=== PATIENT | male | born 1955 | race Caucasian/White ===

== ENCOUNTER 2020-07-25 06:57 | Day surgery (SDC) | payer MEDICARE, SELFPAY ==
--- NOTE | 2020-07-22 08:48 | P.CONAN_ITS ---
Documented by User: Justine Harrison 07/22/20 08:49 HPI - Anesthesia Eval Consult details Narrative: 65yo M for Colonoscopy [facility] Past Medical History Medical History Anal cancer Cancer of colon with rectum Cellulitis Diabetes Diabetic eye exam HTN (hypertension) Hyperlipidemia Family History Family History Father No problems noted. Mother Lung cancer Surgical History Surgical History H/O colonoscopy Hx of colectomy Social History Social History Smoking Status: Never smoker Use of substances other than those prescribed or required for medical reasons: No Advance Directives: No Advance Directives Information Provided: No Advance Directives on File: No Meds Allergies Allergy/AdvReac Type Severity Reaction Status Date / Time No Known Allergies Allergy Verified 06/08/20 13:48 Home Medications Medication Instructions Recorded Confirmed Type aspirin [Aspir-81] 81 mg PO DAILY 07/19/20 07/19/20 History lisinopril 10 mg PO DAILY 07/19/20 07/19/20 History metformin 500 mg PO BID 07/19/20 07/19/20 History Exam Exam Date and Time: July 22, 2020 0848 Assessment and Plan Assessment Anesthesia Assessment: Chart Reviewed Documented by User: Josefina Albarado 07/25/20 07:33 [facility] Past Medical History Medical History Anal cancer Cancer of colon with rectum Cellulitis Diabetes Diabetic eye exam HTN (hypertension) Hyperlipidemia Family History Family History Father No problems noted. Mother Lung cancer Family history of problems with anesthesia: No Surgical History Surgical History H/O colonoscopy Hx of colectomy History of Problems with Anesthesia: No Social History Social History Smoking Status: Never smoker Use of substances other than those prescribed or required for medical reasons: No Advance Directives: No Advance Directives Information Provided: No Advance Directives on File: No Meds Allergies Allergy/AdvReac Type Severity Reaction Status Date / Time No Known Allergies Allergy Verified 06/08/20 13:48 Home Medications Medication Instructions Recorded Confirmed Type aspirin [Aspir-81] 81 mg PO DAILY 07/19/20 07/19/20 History lisinopril 10 mg PO DAILY 07/19/20 07/19/20 History metformin 500 mg PO BID 07/19/20 07/19/20 History Exam Height,Weight and Vital Signs: Vital Signs Temp Pulse Resp BP Pulse Ox 07/25/20 06:48 96.2 F L 57 16 171/84 H 97 Pertinent Lab Results Pertinent Lab Results: POC 95 Airway Mallampati Class: II TM Dist: >3cm Neck ROM: Full Loose/Missing/Broken Teeth: Yes (Top front right- chipped, front teeth ridged, rough) Heart: RRR Lungs: CTAB Assessment and Plan Assessment Anesthesia Assessment: Anesthesia Plan Discussed and Chart Reviewed Final Anesthetic Review NPO: Yes ASA Class: II Final Preanesthetic Review: No Changes in Pt Med Stat, Meds/Allgs Chart Reviewed, Consent Obtained/Reviewed and Anes Risks/Benef Reviewed Patient Risk: Low Procedure Risk: Low Anesthetic Plan Anesthetic Plan: MAC: Disposition: Standard PACU
[2020-07-25 06:48] VITALS: BP 171/84; PULSE 57; RESP 16; TEMP 35.7; O2SAT 97; BMI 27.5
[2020-07-25] MEDS: Lactated Ringers 1,000 ML 100 ML IVCONT (07:06)
--- NOTE | 2020-07-25 07:16 | P.OP_ITS ---
Operative Note Operative Note Date of Service: 07/25/20 Narrative: Pre-op diagnosis: colon cancer screening, hx of rectal ca s/p transanal excision Post-op diagnosis: other (colon polyps, diverticulosis) Procedure: COLONOSCOPY TILL CECUM WITH BIOPSY AND SNARE POLYPECTOMY Consent: Indications for the procedure and potential complications of bleeding, perforation, reaction to medications and missed diagnosis were discussed with the patient and informed consent was obtained. Instrument: Olympus PCF H 190 L variable stiffness pediatric colonoscope Monitoring: Vital signs and clinical assessment, intermittent blood pressure monitoring, continuous EKG monitoring, Pulse oximetry and Carbon Dioxide monitoring were done throughout the procedure. Colon withdrawl time was 25 minutes. Procedure: The patient was placed in the left lateral decubitis position and pre-procedure medications were administered. After a digital rectal examination of the ano-rectum, the video colonoscope was inserted into the rectum and advanced through the colon to the cecum. The colonoscope was slowly withdrawn in a retrograde panoramic fashion and the colon mucosa was carefully examined including a retroflexed view of the rectum. Findings and interventions are described below. Procedure Difficulty: Without difficulty Findings: Terminal Ileum: Distal 5 cms was examined and appeared normal Cecum: Prominent fold on distal lip of ICV - biopsied. Ascending Colon: Normal Transverse Colon: Normal Descending Colon: Moderate diverticulosis Sigmoid Colon: A 5-6 mm sessile polyp adjacent to a diverticulum - biopsied. Moderate diverticulosis Rectum: A 10 mm sessile polyp at 5 cms removed with a hot snare. Scar of transanal resection seen at 5 cms without recurrent polyp. Ano-rectum: Normal Colon preparation: Good after copious irrigation. Impression and Post Procedure Diagnosis: Colonoscopy Findings: Two polyps removed Scar of transanal resection seen at 5 cms without recurrent polyp. Prominent fold on distal lip of ICV - biopsied. Moderate diverticulosis seen in the left colon Plan: Await pathology results Patient has an appointment on 08/08/20 in the GI Clinic with ANOOP Og. Repeat Colonoscopy interval based on path results - in 3-5 years if polyps are adenomatous and 10 years if polyps are hyperplastic. Above findings were reviewed with the patient and colon polyps and diverticulo sis handouts were given in the discharge area Surgeon: Quique Flowers MD Estimated blood loss (mL): 0 Pathology: other (A. Fold ICV, B. SC polyp x 1, C. Rectal polyp x 1) Condition: stable Disposition: PACU
--- NOTE | 2020-07-25 07:16 | MHC.SHP ---
Pre-Procedural Eval Section A The patient is an INPATIENT: No The History & Physical has been completed within 30 days and I have reviewed it.: No Section B Chief Complaint: SCREENING Details of Present Illness: A 65-year-old male referred for screening colonoscopy history of rectal cancer with transanal excision-last colonoscopy 2014 showed diverticulosis no polyps. He has been doing very well he has no colon issues. He has a to normal bowel pattern no rectal bleeding or rectal pain. He has a good appetite. Continues to work part-time No nausea, vomiting, abdominal pain, rectal bleeding, fever or chills. Relevant Family History (Specify if Yes): No Relevant Social History: None Present Medications: see Short Stay Collaborative assessment Medical History: Significant History ( Colon cancer - 1998. TYPE 2 DIABETES. Hyperlipidemia. Hypertension. ) History of Previous Operations: Relevant previous surgery/procedure and date(s) (colectomy ([facility]) 1998 colonoscopy ([facility]) 09/12/2010 colonoscopy 2014 ) Allergies: Allergies Allergy/AdvReac Type Severity Reaction Status Date / Time No Known Allergies Allergy Verified 06/08/20 13:48 Review of Systems Sugical H&P ROS: Negative: Constitution, Cardiovascular, Respiratory and Gastrointestinal Exam Surgical H&P Exam: Normal: Heart, Normal: Lungs, Normal: Extremities and Normal: Abdomen Plan Diagnosis/Plan: Unchanged Patient has been examined and remains a candidate for the planned procedure
[2020-07-25 08:09] LABS: Glucose, Whole Blood 95 mg/dL (60-115)
[2020-07-25 08:22] VITALS: BP 106/57; PULSE 56; RESP 14; TEMP 36.1; O2SAT 100
[2020-07-25 08:35] VITALS: BP 159/80; PULSE 59; RESP 16; O2SAT 100
--- NOTE | 2020-07-25 12:34 | HO.POSTANES ---
Post Anesthesia Evaluation Post Anesthesia Evaluation Vital Signs: Vital Signs Temp Pulse Resp BP Pulse Ox 07/25/20 08:35 59 16 159/80 H 100 07/25/20 08:22 97.0 F 56 14 106/57 L 100 07/25/20 06:48 96.2 F L 57 16 171/84 H 97 Anesthesia: Monitored Mental Status: Awake Pain Control: Satisfactory Nausea/Vomiting: None Hydration: Adequate Anesthesia-Related Issues: No Anes. Related Issues
== END 2020-07-25 09:13 | disposition home or self-care (01) ==
PROVIDERS: PCP Internal Medicine; Visit Provider Internal Medicine Gastroenterology
PROC: 0DJD8ZZ Inspection of Lower Intestinal Tract, Via Natural or Artificial Opening Endoscopic (ICD-10-PCS; CPT 45378; principal; 2020-07-25 07:30)
DX: Z12.11 Encounter for screening for malignant neoplasm of colon (principal); D12.8 Benign neoplasm of rectum; K63.5 Polyp of colon; K57.30 Diverticulosis of large intestine without perforation or abscess without bleeding; Z85.048 Personal history of other malignant neoplasm of rectum, rectosigmoid junction, and anus; E11.9 Type 2 diabetes mellitus without complications; Z79.84 Long term (current) use of oral hypoglycemic drugs
CPT/HCPCS: 45385; 45380; 82947; 88305

== ENCOUNTER → 2020-08-08 11:51 | Outpatient (BNVA) | payer MEDICARE, SELFPAY | PROVIDERS: Visit Provider Physician Assistant | DX: Z13.89 Encounter for screening for other disorder (principal) | CPT/HCPCS: Q3014 ==

== ENCOUNTER → 2020-11-14 10:14 | Outpatient (BNVA) | payer MEDICARE, SELFPAY | PROVIDERS: PCP Internal Medicine; Visit Provider Nurse Practitioner Gerontology | DX: E11.29 Type 2 diabetes mellitus with other diabetic kidney complication (principal); I10 Essential (primary) hypertension; E78.5 Hyperlipidemia, unspecified; E66.3 Overweight | CPT/HCPCS: 82947; 99212 ==

== ENCOUNTER → 2020-12-15 13:15 | Outpatient (BNVA) | payer MEDICARE, SELFPAY | PROVIDERS: PCP Internal Medicine; Visit Provider Dietitian, Registered | DX: E11.29 Type 2 diabetes mellitus with other diabetic kidney complication (principal) | CPT/HCPCS: 97802 ==

== ENCOUNTER → 2021-01-19 13:20 | Outpatient (BNVA) | payer MEDICARE, SELFPAY | PROVIDERS: PCP Internal Medicine; Visit Provider Dietitian, Registered | DX: E11.29 Type 2 diabetes mellitus with other diabetic kidney complication (principal) | CPT/HCPCS: 97803 ==

== ENCOUNTER → 2021-05-15 10:40 | Outpatient (BNVA) | payer MEDICARE, SELFPAY | PROVIDERS: PCP Internal Medicine; Visit Provider Nurse Practitioner Gerontology | DX: E11.29 Type 2 diabetes mellitus with other diabetic kidney complication (principal); E78.5 Hyperlipidemia, unspecified; E66.3 Overweight; I10 Essential (primary) hypertension | CPT/HCPCS: 82947; 83036; 99212 ==

== ENCOUNTER 2021-05-16 07:09 | Outpatient (REF) | payer MEDICARE, SELFPAY ==
[2021-05-16 12:11] LABS: Creatinine Urine 77.46 mg/dL; Microalbum/Creatinine Ratio Ur 15.4 ug/mg cr
[2021-05-16 12:17] LABS: Alanine Aminotransferase 8 U/L (0-40); Albumin Level 4.4 g/dL (3.5-5.0); Alkaline Phosphatase 53 U/L (39-117); Anion Gap 13 (12-20); Aspartate Amino Transferase 19 U/L (5-37); Bilirubin Total 1.2 mg/dL (0.0-1.0); Blood Urea Nitrogen 17 mg/dL (9-16); Calcium 9.5 mg/dL (8.4-10.2); Carbon Dioxide 27 mmol/L (22-29); Chloride 106 mmol/L (96-108); Cholesterol 156 mg/dL; Estimated Glomerular Filt Rate > 60; Glucose Fasting 122 mg/dL (60-99); HDL Cholesterol 53 mg/dL; LDL Cholesterol Calculated 86 mg/dl; Potassium 4.7 mmol/L (3.3-5.1); Sodium 141 mmol/L (135-145); Total Protein 6.8 g/dL (6.5-8.0); Triglycerides 89 mg/dL
[2021-05-17 08:40] LABS: LDL Cholesterol Direct 93 mg/dL (<100)
== END 2021-05-16 07:10 | disposition home or self-care (01) ==
LOC: HO.HMGCLDS 07:09
PROVIDERS: PCP Internal Medicine; Visit Provider Nurse Practitioner Gerontology
DX: E11.29 Type 2 diabetes mellitus with other diabetic kidney complication (principal)
CPT/HCPCS: 36415; 80053; 80061; 82043; 83721

== ENCOUNTER 2021-10-20 08:10 | Outpatient (REF) | payer MEDICARE, SELFPAY ==
[2021-10-20 11:42] LABS: Hematocrit 44.5 % (42.0-52.0); Hemoglobin 14.7 g/dl (14.0-18.0); Mean Corpuscular Hemoglobin 29.9 pg (27.0-33.0); Mean Corpuscular Volume 90.4 fL (80.0-98.0); Mean Platelet Volume 10.3 fL (9.4-12.4); Platelet Count 172 X10*3/uL (160-400); Red Blood Count 4.92 X10*6/uL (4.60-5.80); Red Cell Distribution Width 12.8 % (11.0-16.0); White Blood Count 6.6 X10*3/uL (4.8-10.8)
[2021-10-20 11:57] LABS: Alanine Aminotransferase 8 U/L (0-40); Alkaline Phosphatase 56 U/L (39-117); Anion Gap 9 (12-20); Aspartate Amino Transferase 16 U/L (5-37); Bilirubin Total 0.9 mg/dL (0.0-1.0); Blood Urea Nitrogen 18 mg/dL (9-16); Calcium 9.3 mg/dL (8.4-10.2); Carbon Dioxide 28 mmol/L (22-29); Chloride 107 mmol/L (96-108); Cholesterol 143 mg/dL; Estimated Glomerular Filt Rate > 60; Glucose Fasting 128 mg/dL (60-99); HDL Cholesterol 50 mg/dL; LDL Cholesterol Calculated 81 mg/dl; Potassium 4.4 mmol/L (3.3-5.1); Sodium 140 mmol/L (135-145); Total Protein 6.4 g/dL (6.5-8.0); Triglycerides 60 mg/dL
[2021-10-20 12:02] LABS: Creatinine Urine 111.69 mg/dL; Microalbum/Creatinine Ratio Ur 27.7 ug/mg cr
[2021-10-20 12:07] LABS: Estimated Average Glucose 126 mg/dL
[2021-10-20 12:16] LABS: Prostate Specific Antigen Scr 0.46 ng/mL (<0.05-4.0)
== END 2021-10-20 08:11 | disposition home or self-care (01) ==
LOC: HO.HMGCLDS 08:10
PROVIDERS: Visit Provider Internal Medicine
DX: Z00.00 Encounter for general adult medical examination without abnormal findings (principal); Z12.5 Encounter for screening for malignant neoplasm of prostate; E11.29 Type 2 diabetes mellitus with other diabetic kidney complication; E78.5 Hyperlipidemia, unspecified
CPT/HCPCS: 36415; 80053; 80061; 82043; 83036; 84153; 85027

== ENCOUNTER 2021-10-24 10:54 | Outpatient (REF) | payer MEDICARE, SELFPAY ==
--- NOTE | ~2021-10-24 | XR_ITS ---
EXAMINATION: XR SHOULDER, LEFT CLINICAL INFORMATION: Pain COMPARISON: None TECHNIQUE: Four views of the left shoulder. FINDINGS: There is no fracture or dislocation. The glenohumeral joint is well aligned. Mild narrowing of the joint space with small osteophytes. Mild hypertrophic degenerative change of the acromioclavicular joint. The visualized lung is clear. The visualized ribs are intact. XR/XR shoulder LT min 2V IMPRESSION: Mild degenerative changes of the left shoulder.
== END 2021-10-24 10:55 | disposition home or self-care (01) ==
LOC: HO.HMGCX 10:54
PROVIDERS: PCP Internal Medicine; Visit Provider Internal Medicine
DX: M25.512 Pain in left shoulder (principal); E11.9 Type 2 diabetes mellitus without complications; I10 Essential (primary) hypertension; E78.5 Hyperlipidemia, unspecified
CPT/HCPCS: 73030

== ENCOUNTER 2021-12-13 09:00 | Outpatient (RCR) | payer MEDICARE, SELFPAY ==
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
--- NOTE | 2021-12-29 15:11 | MHC.PT.DC ---
[facility] [place] [facility] [place] Office [place] Office [address] Zakiya Aburto [address] [phone] F: [phone] F: [phone] F: [phone] F: [phone] Physical Therapy Discharge Report Diagnosis: PAIN IN L SHOULDER Date of Surgery: NA Date of Evaluation: 11/22/21 Date of Discharge: 12/29/21 Treatments to Date: 6 Cancellations to Date: No Shows to Date: Discharge Status: Achieved Goals Improved Function Independent with HEP Patient Elected to Stop Discharge Summary: HAS MET MOST PT GOALS, GOOD HOME PROG WITH COMPLIANCE NOTED. PLAN WAS FOR 2 WK FU (12/27/21) VS CALL TO CX IF FEELING OK. Pt CALLED TO CX LAST APPT STATING THAT HE DIDNT THINK HE NEEDED ANY MORE PT Electronically signed by: KRYSTLE GOMEZ PT Please sign and return to therapist. Thank you for your referral.
== END 2021-12-29 15:14 | disposition home or self-care (01) ==
LOC: HO.PTWFD 09:00
PROVIDERS: PCP Internal Medicine; Visit Provider Internal Medicine
DX: M25.512 Pain in left shoulder (principal)
CPT/HCPCS: 97110; 97161; 97530; 97535

== ENCOUNTER 2022-10-29 19:19 | Inpatient (IN) | payer MEDICARE, SELFPAY ==
--- NOTE | ~2022-10-29 | XR_ITS ---
EXAMINATION: RIGHT HAND/WRIST CLINICAL INFORMATION: Status post dog bite. COMPARISON: None TECHNIQUE: 4 views. FINDINGS: There is no visible fracture or bony abnormality. The soft tissues are normal. No radiopaque foreign body seen. XR/XR hand wrist RT IMPRESSION: Unremarkable right hand exam. No soft tissue abnormality seen.
[2022-10-29 20:06] VITALS: BP 136/61; PULSE 67; RESP 16; TEMP 36.9; O2SAT 97; BMI 29.3
--- NOTE | 2022-10-29 20:06 | ED_ITS ---
HPI - Animal Bite General Chief Complaint: Extremity Injury, Upper <ANOOP Espinosa - Last Filed: 10/29/22 20:13> Stated Complaint: dog bite right hand red and swollen <ANOOP Espinosa - Last Filed: 10/29/22 20:13> Time Seen by Provider: 10/29/22 23:39 <ANOOP Espinosa - Last Filed: 10/29/22 20:13> Source: patient <Khadijah Freire MD - Last Filed: 10/30/22 00:39> Mode of arrival: ambulatory <Khadijah Freire MD - Last Filed: 10/30/22 00:39> Limitations: no limitations <Khadijah Freire MD - Last Filed: 10/30/22 00:39> History of Present Illness HPI narrative: Patient comes to the emergency room complaining of a dog bite to the dorsum of the right hand. Patient accidentally stepped on his dog and his dog bit his right hand on Saturday night. He went to the urgent care yesterday morning and was started on Augmentin. He took 3 doses. Although reports the redness is spreading past the line that they trace. Patient denies fever chills. The docks up-to-date with his immunizations. Patient receive a tetanus shot when he went to urgent care 2 days ago <Khadijah Freire MD - Last Filed: 10/30/22 00:39> Related Data Home Medications: Home Medications Medication Instructions Recorded Confirmed aspirin 81 mg tablet,delayed 81 mg PO DAILY 07/19/20 06/22/22 release Previous Rx's Medication Instructions Recorded clobetasol 0.05 % topical ointment 1 appl topical BEDTIME #60 grams 06/20/21 clobetasol 0.05 % topical ointment 1 appl topical BEDTIME #45 grams 04/26/22 metformin 500 mg tablet,extended 500 mg PO QPM #90 tabs 08/10/22 release 24 hr pravastatin 20 mg tablet 20 mg PO DAILY #90 tabs 08/10/22 lisinopril 10 mg tablet 10 mg PO DAILY #90 tabs 08/23/22 <ANOOP Espinosa - Last Filed: 10/29/22 20:13> Allergies/Adverse Reactions: Allergies Allergy/AdvReac Type Severity Reaction Status Date / Time No Known Allergies Allergy Verified 06/22/22 08:54 <ANOOP Espinosa - Last Filed: 10/29/22 20:13> Review of Systems Review of Systems: Constitutional : No Weight loss, No Fever, No Chills, No Night Sweats, No Fatigue, No Malaise ENT/Mouth : No Hearing loss, No Ear Pain, No Nasal Congestion, No Sinus Pain, No Hoarseness, No sore throat, No Rhinorrhea, No Swallowing Difficulty Eyes: No Eye Pain, No Swelling, No Redness, No Foreign Body, No Discharge, No Vision Changes Cardiovascular : No Chest Pain, No SOB, No Dyspnea on Exertion, No Orthopnea, No Edema, No Palpitations Respiratory : No Cough, No Sputum, No Wheezing, No Smoke Exposure, No Dyspnea Gastrointestinal : No Nausea, No Vomiting, No Diarrhea, No Constipation, No abdominal Pain, No Hematochezia, No Melena Genitourinary : no irregular bleeding, No Dysuria, No Urinary Frequency, No Hematuria, No Urinary Incontinence, No Urgency, No Flank Pain, No Urinary Flow Changes, No Hesitancy Musculoskeletal : No joint pain, No Myalgias, see skin below Skin : The dorsum of the right hand is erythematous, swollen, has 2 puncture wounds, there is mild streaking passing the marked line when antibiotics were started. Neuro : No Weakness, No Numbness, No Paresthesias, No Loss of Consciousness, No Dizziness, No Headache Psych : No Anxiety/Panic, No Depression, No SI/HI/AH/VH, No Social Issues, Heme/Lymph: No Bruising, No Bleeding,No Lymphadenopathy Endocrine : No Polyuria, No Polydipsia, No Temperature Intolerance <Khadijah Freire MD - Last Filed: 10/30/22 00:39> [facility] Past Medical History Medical History: Medical History Anal cancer Annual physical exam Cancer of colon with rectum Cellulitis Diabetes Diabetic eye exam DM type 2 (diabetes mellitus, type 2) Essential hypertension HTN (hypertension) Hyperlipidemia Hyperlipidemia LDL goal <100 Overweight (BMI 25.0-29.9) Proteinuria Shoulder pain, left <ANOOP Espinosa - Last Filed: 10/29/22 20:13> Surgical History: Surgical History H/O colonoscopy Hx of colectomy <ANOOP Espinosa - Last Filed: 10/29/22 20:13> Family History Family History: Family History Father No problems noted. Mother Lung cancer <ANOOP Espinosa - Last Filed: 10/29/22 20:13> Social History Social History: Social History Household Members: Spouse Housing: House Alcohol intake: former Patient Tobacco Use Status: Never used Tobacco e-Cigarette/Vaping Use: Never Used Advance Directives: No Current occupational status: retired Cognitive needs: No Hearing needs: No Vision needs: Yes <ANOOP Espinosa - Last Filed: 10/29/22 20:13> Physical Exam ED Vital Signs: Vital Signs - 24 hr 10/29/22 20:06 Temperature 98.4 F Pulse Rate 67 Respiratory Rate 16 Blood Pressure 136/61 Pulse Oximetry 97 Oxygen Delivery Method Room Air BMI result Body Mass Index 29.3 <ANOOP Espinosa - Last Filed: 10/29/22 20:13> Vital Signs - 24 hr 10/29/22 20:06 Temperature 98.4 F Pulse Rate 67 Respiratory Rate 16 Blood Pressure 136/61 Pulse Oximetry 97 Oxygen Delivery Method Room Air BMI result Body Mass Index 29.3 <Khadijah Freire MD - Last Filed: 10/30/22 00:39> Course Course Course Narrative: RME-20:10pm 67yoM presenting to the ER with complaints of spreading redness up the lateral aspect/ulnar aspect of the forearm that worsened today. He accidentally stepped on his dog and his dog bit his right hand on Saturday night. He went to the urgent care yesterday morning and was started on Augmentin. He took 3 doses. Although reports the redness is spreading past the line that they trace therefore he came here for further evaluation treatment and requesting IV antibiotics. Reports associated chills. No measured fevers. Denies any other symptoms complaints or concerns at this time. Reports that updated his tetanus at the urgent care. Plan: Will obtain labs, blood cultures, lactic acid, x-ray of right hand. Patient will be sent back to waiting room to be evaluated in the ED. <ANOOP Espinosa - Last Filed: 10/29/22 20:13> Medical Decision Making Medical Decision Making MDM Narrative: -patient's white blood cell count is within normal limits. Lactic acid normal. However, on physical exam, erythema streaking is going beyond the marked area where the erythema was. Patient has already had 3 doses of p.o. antibiotics, Augmentin, but seems to be failing p.o. treatment. Patient will need IV antibiotics. -abscess is not suspect -tenosynovitis not suspected. Patient has full function of hands and fingers, normal range of motion -I discussed the patient with Dr. Dugan, pt being admitted, patient agrees with plan <Khadijah Freire MD - Last Filed: 10/30/22 00:39> Differential Diagnosis Differential Diagnoses: The differential diagnosis associated with the presentation includes (Cellulitis, tenosynovitis) <Khadijah Freire MD - Last Filed: 10/30/22 00:39> Admission/Observation Consideration of admission/observation: Escalation of care including admission/observation considered <Khadijah Freire MD - Last Filed: 10/30/22 00:39> Consult Healthcare Provider Management of the patient was discussed with: Hospitalist <Khadijah Freire MD - Last Filed: 10/30/22 00:39> Lab Data MDM Lab Attestation statement: I reviewed the patient's lab results. <Khadijah Freire MD - Last Filed: 10/30/22 00:39> Result Diagrams: 10/29/22 22:50 10/29/22 22:50 <ANOOP Espinosa - Last Filed: 10/29/22 20:13> Labs: Lab Results 10/29/22 10/29/22 10/29/22 Range/Units 22:49 22:50 22:50 WBC 8.6 (4.8-10.8) X10*3/uL RBC 4.80 (4.60-5.80) X10*6/uL Hgb 14.3 (14.0-18.0) g/dl Hct 42.7 (42.0-52.0) % MCV 89.0 (80.0-98.0) fL MCH 29.8 (27.0-33.0) pg MCHC 33.5 (31.0-36.0) g/dl RDW 13.1 (11.0-16.0) % Plt Count 159 L (160-400) X10*3/uL MPV 10.2 (9.4-12.4) fL Immature Gran % (Auto) 0.4 (0.0-0.4) % Neut % (Auto) 67.1 (45-73) % Lymph % (Auto) 19.9 L (20-40) % [place] % (Auto) 9.2 (2-11) % Eos % (Auto) 2.8 (0-4) % Baso % (Auto) 0.6 (0-2) % Lymph # (Auto) 1.7 (1.2-4.9) X10*3/uL [place] # (Auto) 0.8 (0.1-1.2) X10*3/uL Eos # (Auto) 0.2 (0.0-0.4) X10*3/uL Baso # (Auto) 0.1 (0.0-0.2) X10*3/uL Abs Immat Gran (auto) 0.03 (0.00-0.03) X10*3/uL Absolute Neuts (auto) 5.8 (2.0-8.3) x10*3/uL Absolute Nucleated RBC 0.000 (0.0-0.012) X10*3/uL Nucleated RBC % (auto) 0.0 (0.0-0.2) /100WBC Sodium 142 (135-145) mmol/L Potassium 3.9 (3.3-5.1) mmol/L Chloride 106 (96-108) mmol/L Carbon Dioxide 29 (22-29) mmol/L Anion Gap 11 L (12-20) BUN 15 (9-16) mg/dL Creatinine 0.90 (0.5-1.4) mg/dL Estim Creat Clear Calc 84.5 Estimated GFR > 60 Random Glucose 170 H (60-115) mg/dL Lactic Acid 1.5 (0.5-2.0) mmol/L Calcium 9.2 (8.4-10.2) mg/dL Magnesium 2.0 (1.6-2.6) mg/dL Total Bilirubin 1.2 H (0.0-1.0) mg/dL AST 15 (5-37) U/L ALT 9 (0-40) U/L Alkaline Phosphatase 69 (39-117) U/L Total Protein 6.9 (6.5-8.0) g/dL Albumin 4.4 (3.5-5.0) g/dL <ANOOP Espinosa - Last Filed: 10/29/22 20:13> Lab Results 10/29/22 10/29/22 10/29/22 Range/Units 22:49 22:50 22:50 WBC 8.6 (4.8-10.8) X10*3/uL RBC 4.80 (4.60-5.80) X10*6/uL Hgb 14.3 (14.0-18.0) g/dl Hct 42.7 (42.0-52.0) % MCV 89.0 (80.0-98.0) fL MCH 29.8 (27.0-33.0) pg MCHC 33.5 (31.0-36.0) g/dl RDW 13.1 (11.0-16.0) % Plt Count 159 L (160-400) X10*3/uL MPV 10.2 (9.4-12.4) fL Immature Gran % (Auto) 0.4 (0.0-0.4) % Neut % (Auto) 67.1 (45-73) % Lymph % (Auto) 19.9 L (20-40) % [place] % (Auto) 9.2 (2-11) % Eos % (Auto) 2.8 (0-4) % Baso % (Auto) 0.6 (0-2) % Lymph # (Auto) 1.7 (1.2-4.9) X10*3/uL [place] # (Auto) 0.8 (0.1-1.2) X10*3/uL Eos # (Auto) 0.2 (0.0-0.4) X10*3/uL Baso # (Auto) 0.1 (0.0-0.2) X10*3/uL Abs Immat Gran (auto) 0.03 (0.00-0.03) X10*3/uL Absolute Neuts (auto) 5.8 (2.0-8.3) x10*3/uL Absolute Nucleated RBC 0.000 (0.0-0.012) X10*3/uL Nucleated RBC % (auto) 0.0 (0.0-0.2) /100WBC Sodium 142 (135-145) mmol/L Potassium 3.9 (3.3-5.1) mmol/L Chloride 106 (96-108) mmol/L Carbon Dioxide 29 (22-29) mmol/L Anion Gap 11 L (12-20) BUN 15 (9-16) mg/dL Creatinine 0.90 (0.5-1.4) mg/dL Estim Creat Clear Calc 84.5 Estimated GFR > 60 Random Glucose 170 H (60-115) mg/dL Lactic Acid 1.5 (0.5-2.0) mmol/L Calcium 9.2 (8.4-10.2) mg/dL Magnesium 2.0 (1.6-2.6) mg/dL Total Bilirubin 1.2 H (0.0-1.0) mg/dL AST 15 (5-37) U/L ALT 9 (0-40) U/L Alkaline Phosphatase 69 (39-117) U/L Total Protein 6.9 (6.5-8.0) g/dL Albumin 4.4 (3.5-5.0) g/dL <Khadijah Freire MD - Last Filed: 10/30/22 00:39> Independent Interpretation I performed an independent interpretation of an: Plain X-Ray (My interpretation of wrist/hand x-ray, no foreign bodies visualized) <Khadijah Freire MD - Last Filed: 10/30/22 00:39> Radiology Impression Discussion of test interpretation with radiology: I have reviewed the radiologist's reading. <Khadijah Freire MD - Last Filed: 10/30/22 00:39> Radiologist Impression: INDINGS: There is no visible fracture or bony abnormality. The soft tissues are normal. No radiopaque foreign body seen.? XR/XR hand wrist RT IMPRESSION: Unremarkable right hand exam. No soft tissue abnormality seen. ? <Khadijah Freire MD - Last Filed: 10/30/22 00:39> Critical Care Time Critical Care Time Critical Care Time: Yes <Khadijah Freire MD - Last Filed: 10/30/22 00:39> Total Critical Care Time: 30 <Khadijah Freire MD - Last Filed: 10/30/22 00:39> Attestation: I have personally provided critical care time. Time includes review of lab data, radiology results, discussion with consultants, and monitoring for potential decompensation. Intervention performed as documented. <Khadijah Freire MD - Last Filed: 10/30/22 00:39> Discharge Plan Discharge Clinical Impression: Cellulitis of hand, right <ANOOP Espinosa - Last Filed: 10/29/22 20:13> Patient Disposition: Admitted As Inpatient <ANOOP Espinosa - Last Filed: 10/29/22 20:13> Prescriptions: No Action pravastatin 20 mg tablet 20 mg PO DAILY Qty: 90 1RF metformin 500 mg tablet extended release 24 hr 500 mg PO QPM Qty: 90 3RF lisinopril 10 mg tablet 10 mg PO DAILY Qty: 90 3RF aspirin 81 mg Tablet,Delayed Release (Dr/Ec) 81 mg PO DAILY clobetasol 0.05 % ointment 1 appl topical BEDTIME Qty: 60 3RF clobetasol 0.05 % ointment 1 appl topical BEDTIME Qty: 45 1RF <ANOOP Espinosa - Last Filed: 10/29/22 20:13>
[2022-10-29 22:56] LABS: MANUAL DIFF FLAG NO
[2022-10-29 22:57] LABS: Basophils Absolute Auto 0.1 X10*3/uL (0.0-0.2); Basophils Percent Auto 0.6 % (0-2); Eosinophils Absolute Auto 0.2 X10*3/uL (0.0-0.4); Eosinophils Percent Auto 2.8 % (0-4); Hematocrit 42.7 % (42.0-52.0); Hemoglobin 14.3 g/dl (14.0-18.0); Imm Gran Abs Auto 0.03 X10*3/uL (0.00-0.03); Imm Gran Pct Auto 0.4 % (0.0-0.4); Lymphocytes Absolute Auto 1.7 X10*3/uL (1.2-4.9); Lymphocytes Percent Auto 19.9 % (20-40); Mean Corpuscular HGB Conc 33.5 g/dl (31.0-36.0); Mean Corpuscular Hemoglobin 29.8 pg (27.0-33.0); Mean Platelet Volume 10.2 fL (9.4-12.4); Monocytes Absolute Auto 0.8 X10*3/uL (0.1-1.2); Monocytes Percent Auto 9.2 % (2-11); Neutrophils Absolute Auto 5.8 x10*3/uL (2.0-8.3); Neutrophils Percent Auto 67.1 % (45-73); Platelet Count 159 X10*3/uL (160-400); Red Cell Distribution Width 13.1 % (11.0-16.0); White Blood Count 8.6 X10*3/uL (4.8-10.8)
[2022-10-29 23:11] LABS: Lactic Acid 1.5 mmol/L (0.5-2.0)
[2022-10-29 23:16] LABS: Alanine Aminotransferase 9 U/L (0-40); Albumin Level 4.4 g/dL (3.5-5.0); Alkaline Phosphatase 69 U/L (39-117); Anion Gap 11 (12-20); Aspartate Amino Transferase 15 U/L (5-37); Bilirubin Total 1.2 mg/dL (0.0-1.0); Blood Urea Nitrogen 15 mg/dL (9-16); Calcium 9.2 mg/dL (8.4-10.2); Carbon Dioxide 29 mmol/L (22-29); Chloride 106 mmol/L (96-108); Creatinine Clr Calc Pharmacy 84.5; Estimated Glomerular Filt Rate > 60; Glucose Random 170 mg/dL (60-115); Potassium 3.9 mmol/L (3.3-5.1); Sodium 142 mmol/L (135-145); Total Protein 6.9 g/dL (6.5-8.0)
--- NOTE | 2022-10-30 00:19 | PM.IMHP ---
History of Present Illness Date of Service: 10/30/22 Chief Complaint: Dog bite This is a 67-year-old male with pertinent history of essential hypertension, mixed hyperlipidemia, lyw-fsonuft-wawvsjjyj diabetes mellitus presents to the emergency department after a dog bite. Patient states that dog bit his right hand on Saturday after he accidentally stepped on his dog. Patient went to urgent care yesterday and was prescribed Augmentin. Patient took about 3 doses of the antibiotic and states that the redness and swelling of his right hand worsened. He is able to make a fist. Patient received tetanus injection 2 days ago. Admits chills but denies fever, nausea, vomiting, abdominal pain, chest pain, palpitations, shortness of breath, changes in urinary or bowel habits. In the emergency department, x-ray of the hand was unremarkable Review of Systems Constitutional: Constitutional: Reports chills Cardiovascular: Cardiovascular: Reports no additional cardiovascular complaints Respiratory: Respiratory: Reports no additional respiratory complaints Gastrointestinal: Gastrointestinal: Reports no additional gastrointestinal complaints Genitourinary: Genitourinary: Reports no additional male genitourinary complaints Musculoskeletal: Musculoskeletal: Reports joint swelling [facility] Medical History Anal cancer Annual physical exam Cancer of colon with rectum Cellulitis Diabetes Diabetic eye exam DM type 2 (diabetes mellitus, type 2) Essential hypertension HTN (hypertension) Hyperlipidemia Hyperlipidemia LDL goal <100 Overweight (BMI 25.0-29.9) Proteinuria Shoulder pain, left Family History Father No problems noted. Mother Lung cancer Surgical History H/O colonoscopy Hx of colectomy Social History Household Members: Spouse Housing: House Alcohol intake: former Patient Tobacco Use Status: Never used Tobacco e-Cigarette/Vaping Use: Never Used Advance Directives: No Current occupational status: retired Cognitive needs: No Hearing needs: No Vision needs: Yes Meds Allergies Allergy/AdvReac Type Severity Reaction Status Date / Time No Known Allergies Allergy Verified 06/22/22 08:54 Active Medications: Current Medications Ampicillin Sodium/Sulbactam (Sodium 3 gm/ Sodium Chloride) 100 mls @ 200 mls/hr IV ONCE ONE Stop: 10/30/22 00:44 Sodium Chloride (Ns) 1,000 mls @ 999 mls/hr IVCONT .Q1H1M ONE Stop: 10/30/22 01:15 Ampicillin Sodium/Sulbactam (Sodium 3 gm/ Sodium Chloride) 100 mls @ 200 mls/hr IV Q6H [facility] Pharmacy Consult (Consult Rx Perform Med Rec) 1 each MISCELLANE ONCE PRN PRN Reason: Consult order Pharmacy Consult (Consult Rx Perform Med Rec) 1 each MISCELLANE ONCE PRN PRN Reason: Consult order Home Medications Medication Instructions Recorded Confirmed Last Taken Type aspirin 81 mg tablet,delayed 81 mg PO DAILY 07/19/20 06/22/22 Unknown History release Physical Exam Vital Signs and Narrative: Vital Signs: Last Vital Signs Temp 98.4 F 10/29/22 20:06 Pulse 67 10/29/22 20:06 Resp 16 10/29/22 20:06 BP 136/61 10/29/22 20:06 Pulse Ox 97 10/29/22 20:06 O2 Del Method 10/29/22 20:06 BMI result Body Mass Index 29.3 Middle-aged male lying in bed in no distress Neck supple, no JVD Regular rate and rhythm, S1-S2 heard Regular breath sounds bilaterally, no wheezing or crackles appreciated Abdomen soft nontender, no guarding, no rigidity Patient is awake, alert and oriented to self, place, time and person ; no focal motor deficit musculoskeletal: Right hand with swelling, erythema and warmth Psych: Normal mood No pedal edema Results Labs 10/29/22 22:50 10/29/22 22:50 Labs: Laboratory Results - last 24 hr 10/29/22 10/29/22 10/29/22 22:49 22:50 22:50 MCV 89.0 MCH 29.8 MCHC 33.5 RDW 13.1 Plt Count 159 L MPV 10.2 Immature Gran % (Auto) 0.4 Neut % (Auto) 67.1 Lymph % (Auto) 19.9 L [place] % (Auto) 9.2 Eos % (Auto) 2.8 Baso % (Auto) 0.6 Lymph # (Auto) 1.7 [place] # (Auto) 0.8 Eos # (Auto) 0.2 Baso # (Auto) 0.1 Abs Immat Gran (auto) 0.03 Absolute Neuts (auto) 5.8 Absolute Nucleated RBC 0.000 Nucleated RBC % (auto) 0.0 Anion Gap 11 L Estim Creat Clear Calc 84.5 Estimated GFR > 60 Random Glucose 170 H Lactic Acid 1.5 Calcium 9.2 Magnesium 2.0 Total Bilirubin 1.2 H AST 15 ALT 9 Alkaline Phosphatase 69 Total Protein 6.9 Albumin 4.4 Imaging Radiologist's Impressions: Impressions Hand/Wrist X-Ray 10/29/22 20:26 IMPRESSION: Unremarkable right hand exam. No soft tissue abnormality seen. Assessment and Plan (1) Cellulitis of hand, right: Status: Acute Plan This is a 67-year-old male with pertinent history of essential hypertension, mixed hyperlipidemia, tyd-jwbwffw-lumqulbuo diabetes mellitus presents to the emergency department after a dog bite. #. Right hand cellulitis after dog bite: Failed outpatient p.o. antibiotics. Will admit and initiate IV empiric Unasyn. #. bwh-msyoaff-bimvnhtxv diabetes mellitus: Initiating Accu-Cheks with sliding scale insulin #. essential hypertension: Continue home lisinopril #. mixed hyperlipidemia: On statin med rec pending DVT prophylaxis: Lovenox 40 mg daily Full code Cardiac diet Admit as inpatient and will require two night minimum hospital stay for IV antibiotics Time Spent With Patient Time: Total time managing care of this patient today ____ minutes. Quality Stroke Does the patient have a stroke diagnosis?: No VTE Prior VTE?: No VTE Risk Level:: Medical - moderate - high VTE Device Contraindication: Treatment Not Indicated VTE Drug Contraindication: N/A - Med Ordered
[2022-10-30] MEDS: Ampicillin Sodium/Sulbactam Na 3 GM in 0.9 % Sodium Chloride 100 ML IV ×4 (00:50→20:09)
[2022-10-30] MEDS: 0.9 % Sodium Chloride 1,000 ML 999 ML IVCONT (00:50)
[2022-10-30] MEDS: Enoxaparin Sodium 40 MG/0.4 ML SYRINGE SUBCUT (00:51)
[2022-10-30 01:42] LABS: COVID-19 Test Negative (Negative); IDNOW Serial# 6674DD1D
--- NOTE | 2022-10-30 01:55 | PC.NURSE ---
patient resting comfortably on stretcher in no apparent distress. ringing call phan appropriately. patient is ambulatory with steady gait to and from bathroom,. will continue to monitor
[2022-10-30 02:21] VITALS: BP 153/80; PULSE 61; RESP 16; TEMP 36.9; O2SAT 99
--- NOTE | 2022-10-30 05:24 | PC.NURSE ---
Med req completed
[2022-10-30 06:04] LABS: MANUAL DIFF FLAG NO
[2022-10-30 06:12] LABS: Basophils Absolute Auto 0.1 X10*3/uL (0.0-0.2); Basophils Percent Auto 0.7 % (0-2); Eosinophils Absolute Auto 0.2 X10*3/uL (0.0-0.4); Eosinophils Percent Auto 3.3 % (0-4); Hematocrit 38.8 % (42.0-52.0); Imm Gran Abs Auto 0.04 X10*3/uL (0.00-0.03); Imm Gran Pct Auto 0.6 % (0.0-0.4); Lymphocytes Absolute Auto 1.5 X10*3/uL (1.2-4.9); Lymphocytes Percent Auto 21.4 % (20-40); Mean Corpuscular HGB Conc 33.5 g/dl (31.0-36.0); Mean Corpuscular Volume 89.6 fL (80.0-98.0); Mean Platelet Volume 10.6 fL (9.4-12.4); Monocytes Absolute Auto 0.7 X10*3/uL (0.1-1.2); Monocytes Percent Auto 10.6 % (2-11); Neutrophils Absolute Auto 4.5 x10*3/uL (2.0-8.3); Neutrophils Percent Auto 63.4 % (45-73); Platelet Count 145 X10*3/uL (160-400); Red Blood Count 4.33 X10*6/uL (4.60-5.80)
[2022-10-30 06:24] LABS: Anion Gap 11 (12-20); Blood Urea Nitrogen 13 mg/dL (9-16); Calcium 8.4 mg/dL (8.4-10.2); Carbon Dioxide 26 mmol/L (22-29); Chloride 110 mmol/L (96-108); Creatinine Clr Calc Pharmacy 84.5; Estimated Glomerular Filt Rate > 60; Glucose Random 153 mg/dL (60-115); Potassium 4.1 mmol/L (3.3-5.1); Sodium 143 mmol/L (135-145)
--- NOTE | 2022-10-30 06:30 | PC.NURSE ---
Pt aox3 resting at the bedside in no apparent distress. Breaths are equal, regular, and unlabored. Swelling and redness noted to the right hand. Pt report pain 5/10. Radial pulse present. Pt able to move all fingers. Medicated with IV ab as scheduled. Pt aware of plan of care. Will continue to monitor.
[2022-10-30 07:24] LABS: Glucose, Whole Blood 157 mg/dL (60-115)
[2022-10-30] MEDS: Insulin Lispro 100 UNIT/ML 3 ML VIAL SUBCUT ×3 (07:25→21:17)
--- NOTE | 2022-10-30 07:33 | PHA.MEDREC ---
Pharmacy Consult ? Medication Reconciliation Pharmacy has completed the medication reconciliation. Completed by RN and reviewed by me Patrick
[2022-10-30 08:32] VITALS: BP 153/89; PULSE 69; RESP 18; O2SAT 98
--- NOTE | 2022-10-30 11:15 | P.PNIM_ITS ---
Subjective Subjective Date of Service: 10/30/22 Interval History: f/u right hand dog bite cellulitis interval history: swelling and redness better, punture wounds noted Physical Exam Vital Signs: Vital Signs: Last Vital Signs Temp 98.4 F 10/30/22 02:21 Pulse 69 10/30/22 08:32 Resp 18 10/30/22 08:32 BP 153/89 H 10/30/22 08:32 Pulse Ox 98 10/30/22 08:32 O2 Del Method 10/30/22 08:32 BMI result Body Mass Index 29.3 Const: Other: General: AO X 3, no acute distress Resp: CTA bilateral CVS: S1,S2,RRR GI: +BS, NT, no distention Skin: right hand swelling with minimal erythema from area marked and punture wouds that are old Neuro: motor grossly intact Psych: appropriate affect Objective Data Active Medications Acetaminophen (Acetaminophen 325 Mg Tablet) 650 mg PO Q6H PRN PRN Reason: Pain, Mild (Pain Scale 1-3) Enoxaparin Sodium (Enoxaparin Sodium 40 Mg/0.4 Ml Syringe) 40 mg SUBCUT Q24H [facility] Last Admin: 10/30/22 00:51 Dose: 40 mg Documented By: ELLIS Glucose (Glucose Gel 15 Gm Gel..Gram.) 15 gm PO Q15M PRN; Protocol PRN Reason: per Hypoglycemia Standing Ord. Ampicillin Sodium/Sulbactam (Sodium 3 gm/ Sodium Chloride) 100 mls @ 200 mls/hr IV Q6H [facility] Last Infusion: 10/30/22 06:43 Dose: 0 mls/hr Documented By: KANDY Dextrose (D10) 250 mls @ 750 mls/hr IV Q15M PRN; Protocol PRN Reason: per Hypoglycemia Standing Ord. Insulin Human Lispro (Insulin Lispro 100 Unit/Ml 3 Ml Vial) 0 unit SUBCUT QIDACHS [facility]; Protocol Last Admin: 10/30/22 07:25 Dose: 2 unit Documented By: IAM Melatonin (Melatonin 3 Mg Tablet) 6 mg PO BEDTIME PRN PRN Reason: Insomnia Ondansetron HCl (Ondansetron Hcl 4 Mg/2 Ml Vial) 4 mg IVPUSH Q8H PRN PRN Reason: Nausea and Vomiting Pharmacy Consult (Consult Rx Perform Med Rec) 1 each MISCELLANE ONCE PRN PRN Reason: Consult order Pharmacy Consult (Consult Rx Perform Med Rec) 1 each MISCELLANE ONCE PRN PRN Reason: Consult order Sodium Chloride (0.9 % Sodium Chloride Flush 3 Ml Syringe) 3 ml IVFLUSH QSHIFT [facility] Last Admin: 10/30/22 07:13 Dose: Not Given Documented By: IAM Non-Admin Reason: Med Not Available Labs 10/30/22 05:40 10/30/22 05:40 Labs: Laboratory Results - last 24 hr 10/29/22 10/29/22 10/29/22 22:49 22:50 22:50 MCV 89.0 MCH 29.8 MCHC 33.5 RDW 13.1 Plt Count 159 L MPV 10.2 Immature Gran % (Auto) 0.4 Neut % (Auto) 67.1 Lymph % (Auto) 19.9 L [place] % (Auto) 9.2 Eos % (Auto) 2.8 Baso % (Auto) 0.6 Lymph # (Auto) 1.7 [place] # (Auto) 0.8 Eos # (Auto) 0.2 Baso # (Auto) 0.1 Abs Immat Gran (auto) 0.03 Absolute Neuts (auto) 5.8 Absolute Nucleated RBC 0.000 Nucleated RBC % (auto) 0.0 Anion Gap 11 L Estim Creat Clear Calc 84.5 Estimated GFR > 60 POC Glucose Random Glucose 170 H Lactic Acid 1.5 Calcium 9.2 Magnesium 2.0 Total Bilirubin 1.2 H AST 15 ALT 9 Alkaline Phosphatase 69 Total Protein 6.9 Albumin 4.4 COVID-19 (RIAT) COVID-19 Clin Com 10/30/22 10/30/22 10/30/22 01:06 05:40 05:40 MCV 89.6 MCH 30.0 MCHC 33.5 RDW 13.0 Plt Count 145 L MPV 10.6 Immature Gran % (Auto) 0.6 H Neut % (Auto) 63.4 Lymph % (Auto) 21.4 [place] % (Auto) 10.6 Eos % (Auto) 3.3 Baso % (Auto) 0.7 Lymph # (Auto) 1.5 [place] # (Auto) 0.7 Eos # (Auto) 0.2 Baso # (Auto) 0.1 Abs Immat Gran (auto) 0.04 H Absolute Neuts (auto) 4.5 Absolute Nucleated RBC 0.000 Nucleated RBC % (auto) 0.0 Anion Gap 11 L Estim Creat Clear Calc 84.5 Estimated GFR > 60 POC Glucose Random Glucose 153 H Lactic Acid Calcium 8.4 D Magnesium Total Bilirubin AST ALT Alkaline Phosphatase Total Protein Albumin COVID-19 (RITA) Negative COVID-19 Clin Com See Note 10/30/22 07:18 MCV MCH MCHC RDW Plt Count MPV Immature Gran % (Auto) Neut % (Auto) Lymph % (Auto) [place] % (Auto) Eos % (Auto) Baso % (Auto) Lymph # (Auto) [place] # (Auto) Eos # (Auto) Baso # (Auto) Abs Immat Gran (auto) Absolute Neuts (auto) Absolute Nucleated RBC Nucleated RBC % (auto) Anion Gap Estim Creat Clear Calc Estimated GFR POC Glucose 157 H Random Glucose Lactic Acid Calcium Magnesium Total Bilirubin AST ALT Alkaline Phosphatase Total Protein Albumin COVID-19 (RITA) COVID-19 Clin Com Assessment and Plan (1) Cellulitis of hand, right: Status: Acute (2) Dog bite: Status: Acute Plan right hand dog bite cellulitis came to ED after only 3 doses of Augmentin, looking better, plan: continue unasyn for 1 today and return to PO Augmentin by tomorrow continue BP and diabetes meds Time Spent With Patient Time: Total time managing care of this patient today ____ minutes. Quality Stroke Does the patient have a stroke diagnosis?: No VTE Prior VTE?: No VTE Risk Level:: Medical - moderate - high VTE Device Contraindication: Treatment Not Indicated VTE Drug Contraindication: N/A - Med Ordered
[2022-10-30 11:24] VITALS: BP 171/76; PULSE 52; RESP 12; TEMP 36.6; O2SAT 97
--- NOTE | 2022-10-30 11:49 | MHC.CM.PN ---
Met with patient in regards to discharge planning. Patient lives with his , ambulates independently and had no services prior to coming to the hospital. No services anticipated to be needed because patient is not homebound. PCP verified. Patient denies having a HCP. Information provided. Patient is declining to complete one at this time. Patient received 4 Pfizer vaccines. IMM explained and signed. Patient's family will transport him home when medically stable. Continue to monitor for d/c needs.
[2022-10-30 12:17] LABS: Glucose, Whole Blood 108 mg/dL (60-115)
[2022-10-30] MEDS: Pravastatin Sodium 20 MG TABLET PO (12:18)
[2022-10-30] MEDS: lisinopriL 10 MG TABLET PO (12:19)
[2022-10-30 14:31] VITALS: BP 162/82; PULSE 63; RESP 16; TEMP 36.4; O2SAT 99
[2022-10-30] MEDS: 0.9 % Sodium Chloride Flush 3 ML SYRINGE IVFLUSH (16:00)
[2022-10-30 18:15] LABS: Glucose, Whole Blood 207 mg/dL (60-115)
[2022-10-30 20:00] VITALS: BP 158/82; PULSE 60; RESP 18; TEMP 36.3; O2SAT 98
[2022-10-30] MEDS: metFORMIN HCl ER 500 MG TAB.ER.24H PO (20:11)
[2022-10-30 20:45] LABS: Glucose, Whole Blood 189 mg/dL (60-115)
[2022-10-31] MEDS: Enoxaparin Sodium 40 MG/0.4 ML SYRINGE SUBCUT (00:30)
[2022-10-31] MEDS: 0.9 % Sodium Chloride Flush 3 ML SYRINGE IVFLUSH ×2 (00:30→08:23)
[2022-10-31] MEDS: Ampicillin Sodium/Sulbactam Na 3 GM in 0.9 % Sodium Chloride 100 ML IV ×3 (00:52→12:08)
[2022-10-31 03:39] VITALS: BP 156/77; PULSE 62; RESP 18; TEMP 36.9; O2SAT 98
[2022-10-31 07:27] VITALS: BP 174/88; PULSE 58; RESP 16; TEMP 36.3; O2SAT 97
[2022-10-31 07:43] LABS: Glucose, Whole Blood 163 mg/dL (60-115)
[2022-10-31] MEDS: Insulin Lispro 100 UNIT/ML 3 ML VIAL SUBCUT ×2 (08:22→12:06)
[2022-10-31] MEDS: lisinopriL 10 MG TABLET PO (08:23)
[2022-10-31] MEDS: Pravastatin Sodium 20 MG TABLET PO (08:23)
--- NOTE | 2022-10-31 09:18 | P.DS_ITS ---
DS: Providers Provider Date of Service: 10/31/22 Date of admission: 10/30/22 00:18 Primary care physician: Justine Toribio MD Consults: 10/30/22 11:15 Consult to Infectious Diseases [place]ine [place] [facility] [place] Reason for consultation: Dog bite Has provider been notified: No DS: Diagnosis Discharge Diagnosis (1) Cellulitis of hand, right: Status: Acute (2) Dog bite: Status: Acute DS: Summary Hospital Course Hospital Course: Chief Complaint: Dog bite This is a 67-year-old male with pertinent history of essential hypertension, m ixed hyperlipidemia, blm-xixqaus-bwmmhdhck diabetes mellitus presents to the emergency department after a dog bite.? Patient states that dog bit his right hand on Saturday after he accidentally stepped on his dog.? Patient went to urgent care yesterday and was prescribed Augmentin.? Patient took about 3 doses of the antibiotic and states that the redness and swelling of his right hand worsened.? He is able to make a fist.? Patient received tetanus injection 2 days ago.? Admits chills but denies fever, nausea, vomiting, abdominal pain, chest pain, palpitations, shortness of breath, changes in urinary or bowel habits. Hospital course: Patient presented with worsening right hand cellulitis due to dog bite after 3 doses of Augmentin. He was treated with Unasyn in the hospital with signficant improvement and will transition back to oral Augmentin as at this point Augmentin will not be considered failure. Time Spent with Patient Time attestation: Total time managing care of this patient today ____ minutes. Discharge coordination time: Greater than 30 minutes Quality: Safe Use of Opioids Does Pt have an Active Cancer Diagnosis on the Problem List?: No Quality: Stroke Does the patient have a stroke diagnosis?: No Physical Exam Vital Signs: Vital Signs: Last Vital Signs Temp 97.4 F 10/31/22 07:27 Pulse 58 10/31/22 07:27 Resp 16 10/31/22 07:27 BP 174/88 H 10/31/22 07:27 Pulse Ox 97 10/31/22 07:27 O2 Del Method 10/31/22 07:27 BMI result Body Mass Index 29.3 DS: Data Data Completed and Pending Labs on day of discharge: Laboratory Results - last 24 hr 10/30/22 10/30/22 10/30/22 12:12 18:10 20:32 POC Glucose 108 207 H 189 H 10/31/22 07:33 POC Glucose 163 H Preliminary micro results at discharge 10/29/22 22:50 Blood Culture - Preliminary Blood - Venous No growth after 24 hours. 10/29/22 22:50 Blood Culture - Preliminary Blood - Venous No growth after 24 hours. Discharge Plan Discharge Anticipated Discharge Date/Time: 10/31/22 09:23 Patient Disposition: Home, Self-Care Discharge Diagnosis: Dog bite cellulitis Referrals: Justine Toribio MD [Primary Care Provider] - 1 Week Discharge Medications: Continued pravastatin 20 mg tablet 20 mg PO DAILY Qty: 90 1RF metformin 500 mg tablet extended release 24 hr 500 mg PO QPM Qty: 90 3RF lisinopril 10 mg tablet 10 mg PO DAILY Qty: 90 3RF Diet: Diabetic diet Activity on Discharge: As tolerated Stand Alone Forms: Patient Portal Discharge page Care Plan Goals: Full recovery from cellulitis Health Concerns: Dog bite cellulitis Plan of Treatment: Take Augmentin as recommended and follow up with your Doctor Assessment: as above
[2022-10-31 11:33] LABS: Glucose, Whole Blood 196 mg/dL (60-115)
--- NOTE | 2022-10-31 12:55 | MHC.CM.PN ---
per rounds pt may dc today plan woill be home no servcies
--- NOTE | 2022-10-31 13:07 | W.PM.IDCN ---
History of Present Illness Data of Consult Service Date: 10/31/22 Requesting physician: Jordy Richardson Primary Care Provider: Justine Toribio MD HPI Reason for consult: dog bite He presents with five days right hand pain and swelling right dorsum hand after dog bite. He has gone to ER and started on po Augmentin and had redness going up arm after. He came back to ER and was admitted. He didnt have trouble closing hand. He had bites from his 10 year old [employer] and dog attacked him and bit him on his posterior right thigh first after he stepped on its tail.Then he says he extended his hand in a peacemaking gesture and dog bit him on his hand. He declines rabies shot since he says dog is vaccinated. He feels back to normal today. Review of Systems Review of Systems: Yes all other systems are reviewed and are negative PMF Past Medical History Medical History Anal cancer Annual physical exam Cancer of colon with rectum Cellulitis Diabetes Diabetic eye exam DM type 2 (diabetes mellitus, type 2) Essential hypertension HTN (hypertension) Hyperlipidemia Hyperlipidemia LDL goal <100 Overweight (BMI 25.0-29.9) Proteinuria Shoulder pain, left Family History Family History Father No problems noted. Mother Lung cancer Surgical History Surgical History H/O colonoscopy Hx of colectomy Social History Social History Household Members: Spouse Housing: House Do you presently have visiting nurse or other home services: No Alcohol intake: former Patient Tobacco Use Status: Never used Tobacco e-Cigarette/Vaping Use: Never Used service: No Current occupational status: retired Cognitive needs: No Hearing needs: No Vision needs: Yes Meds Allergies Allergy/AdvReac Type Severity Reaction Status Date / Time No Known Allergies Allergy Verified 06/22/22 08:54 Active Medications: Current Medications Acetaminophen (Acetaminophen 325 Mg Tablet) 650 mg PO Q6H PRN PRN Reason: Pain, Mild (Pain Scale 1-3) Enoxaparin Sodium (Enoxaparin Sodium 40 Mg/0.4 Ml Syringe) 40 mg SUBCUT Q24H [facility] Last Admin: 10/31/22 00:30 Dose: 40 mg Glucose (Glucose Gel 15 Gm Gel..Gram.) 15 gm PO Q15M PRN; Protocol PRN Reason: per Hypoglycemia Standing Ord. Ampicillin Sodium/Sulbactam (Sodium 3 gm/ Sodium Chloride) 100 mls @ 200 mls/hr IV Q6H [facility] Last Infusion: 10/31/22 12:57 Dose: Infused Dextrose (D10) 250 mls @ 750 mls/hr IV Q15M PRN; Protocol PRN Reason: per Hypoglycemia Standing Ord. Insulin Human Lispro (Insulin Lispro 100 Unit/Ml 3 Ml Vial) 0 unit SUBCUT QIDACHS [facility]; Protocol Last Admin: 10/31/22 12:06 Dose: 2 unit Lisinopril (Lisinopril 10 Mg Tablet) 10 mg PO DAILY [facility]; Protocol Last Admin: 10/31/22 08:23 Dose: 10 mg Melatonin (Melatonin 3 Mg Tablet) 6 mg PO BEDTIME PRN PRN Reason: Insomnia Metformin HCl (Metformin Hcl Er 500 Mg Tab.Er.24h) 500 mg PO BEDTIME [facility] Last Admin: 10/30/22 20:11 Dose: 500 mg Ondansetron HCl (Ondansetron Hcl 4 Mg/2 Ml Vial) 4 mg IVPUSH Q8H PRN PRN Reason: Nausea and Vomiting Pharmacy Consult (Consult Rx Perform Med Rec) 1 each MISCELLANE ONCE PRN PRN Reason: Consult order Pharmacy Consult (Consult Rx Perform Med Rec) 1 each MISCELLANE ONCE PRN PRN Reason: Consult order Pravastatin Sodium (Pravastatin Sodium 20 Mg Tablet) 20 mg PO DAILY [facility] Last Admin: 10/31/22 08:23 Dose: 20 mg Sodium Chloride (0.9 % Sodium Chloride Flush 3 Ml Syringe) 3 ml IVFLUSH QSHIFT [facility] Last Admin: 10/31/22 08:23 Dose: 3 ml Physical Exam Vital Signs: Vital Signs: Last Vital Signs Temp 97.4 F 10/31/22 07:27 Pulse 58 10/31/22 07:27 Resp 16 10/31/22 07:27 BP 174/88 H 10/31/22 07:27 Pulse Ox 97 10/31/22 07:27 O2 Del Method 10/31/22 07:27 BMI result Body Mass Index 29.3 Const: General: cooperative HEENT: Head: Yes normal to inspection Face and sinus: Yes normal facial exam Mouth: Normal oral and palatal mucosa present Teeth and gingiva: dentition normal Eyes: General: appearance normal, both eyes and all related structures Pupils: Equal, round and reactive pupils present Resp: Effort & Inspection: normal respiratory effort Cardio: Rate: regular rate Rhythm: regular rhythm GI: Palpation (GI): Soft to palpation and nontender : General: Yes no CVA tenderness Back/Spine/Pelvis: Back: no CVA tenderness Skin: General skin exam: no rashes or lesions noted Neuro: General: moves all extremities Cranial nerves: Yes Equal, round and reactive pupils present Extrem: Other: right hand mild pinkness and swelling dorsal hand with no streaking only .5cm pinkness around puncture mer closes hand well Psych: Appearance: grossly normal Results Labs 10/30/22 05:40 10/30/22 05:40 Microbiology Microbiology Results: Microbiology 10/29/22 22:50 Blood - Venous Blood Culture - Preliminary No growth after 24 hours. 10/29/22 22:50 Blood - Venous Blood Culture - Preliminary No growth after 24 hours. Assessment and Plan (1) Dog bite: Status: Acute (2) Cellulitis of hand, right: Status: Acute Cellulitis is resolving. There is no more lymphangitic streaking,no fever or chills and no leukocytosis or bacteremia. Plan Finish po course Augmentin 7-10 days at home per patient request since he only took three doses before presenting. Make sure up to date on tetanus shot and administer if needed. Time Spent With Patient Time: Total time managing care of this patient today ____ minutes.
--- NOTE | 2022-10-31 14:38 | MHC.CLN ---
[facility] ADDED DIABETIC 2000 KCAL TO DIET ORDER. DX DM, ELEVATED BLOOD GLUCOSE, TAKES DM MEDS.
--- NOTE | 2022-10-31 14:43 | MHC.CM.PN ---
pt dcd home no skilled servceis ordered by
== END 2022-10-31 15:05 | disposition home or self-care (01) | DRG 603 ==
LOC: HO.ED 10-30 00:39 → HO.EDOVER 10-30 01:01 → HO.S3 10-30 16:25
PROVIDERS: Physician Assistant Medical; Admitting Provider Student in an Organized Health Care Education/Training Program; Emergency Provider Emergency Medicine; PCP Internal Medicine; Visit Provider Internal Medicine
DX: L03.113 Cellulitis of right upper limb (principal); E11.9 Type 2 diabetes mellitus without complications; S61.431A Puncture wound without foreign body of right hand, initial encounter; W54.0XXA Bitten by dog, initial encounter; E78.2 Mixed hyperlipidemia; I10 Essential (primary) hypertension; Z20.822 Contact with and (suspected) exposure to COVID-19; Z79.84 Long term (current) use of oral hypoglycemic drugs; Z79.899 Other long term (current) drug therapy
CPT/HCPCS: 36415; 73110; 73130; 80048; 80053; 82947; 83605; 83735; 85025; 87040; 87635; 99285; J0295; J1650

== ENCOUNTER 2023-08-08 11:22 | Outpatient (REF) | payer MEDICARE, SELFPAY ==
[2023-08-08 12:53] LABS: MANUAL DIFF FLAG NO
[2023-08-08 13:43] LABS: Basophils Absolute Auto 0.1 X10*3/uL (0.0-0.2); Basophils Percent Auto 0.8 % (0-2); Eosinophils Absolute Auto 0.2 X10*3/uL (0.0-0.4); Eosinophils Percent Auto 2.8 % (0-4); Hematocrit 44.7 % (42.0-52.0); Hemoglobin 14.9 g/dl (14.0-18.0); Imm Gran Abs Auto 0.04 X10*3/uL (0.00-0.03); Imm Gran Pct Auto 0.6 % (0.0-0.4); Lymphocytes Absolute Auto 1.9 X10*3/uL (1.2-4.9); Lymphocytes Percent Auto 25.7 % (20-40); Mean Corpuscular HGB Conc 33.3 g/dl (31.0-36.0); Mean Corpuscular Hemoglobin 29.5 pg (27.0-33.0); Mean Corpuscular Volume 88.5 fL (80.0-98.0); Mean Platelet Volume 10.5 fL (9.4-12.4); Monocytes Absolute Auto 0.6 X10*3/uL (0.1-1.2); Monocytes Percent Auto 8.9 % (2-11); Neutrophils Absolute Auto 4.4 x10*3/uL (2.0-8.3); Neutrophils Percent Auto 61.2 % (45-73); Platelet Count 170 X10*3/uL (160-400); Red Blood Count 5.05 X10*6/uL (4.60-5.80); Red Cell Distribution Width 12.9 % (11.0-16.0); White Blood Count 7.2 X10*3/uL (4.8-10.8)
[2023-08-08 14:16] LABS: C Reactive Protein 0.16 mg/dL (< or = 0.50); Iron 98 mcg/dL (45-160); Percent Iron Saturation 37 % (15-50); Total Iron Binding Capacity 268 mcg/dL (228-428); Unsaturated Iron Binding 170 ug/dL
[2023-08-08 14:33] LABS: Erythrocyte Sedimentation Rate 3 MM/HR (0-15)
[2023-08-08 14:34] LABS: Ferritin 466 ng/mL (20-250)
[2023-08-08 14:42] LABS: Vitamin B12 403 pg/mL (200-900)
== END 2023-08-08 11:23 | disposition home or self-care (01) ==
LOC: HO.LAB 11:22
PROVIDERS: PCP Internal Medicine; Visit Provider Physician Assistant
DX: K30 Functional dyspepsia (principal); D64.9 Anemia, unspecified; Z85.048 Personal history of other malignant neoplasm of rectum, rectosigmoid junction, and anus
CPT/HCPCS: 36415; 82378; 82607; 82728; 82746; 83540; 85025; 85652; 86140; 99202

== ENCOUNTER 2023-08-08 11:22 | Outpatient (AMB) | payer MEDICARE, SELFPAY ==
--- NOTE | 2023-08-08 11:29 | MHC.OFFVIS ---
Intake Vital Signs 08/08/23 11:32 Height 5 ft 8 in Weight 194 lb 0.108 oz BMI 29.5 BP 193/89 H Blood Pressure Location Lt brachial Position Sitting Pulse 54 Intake Visit Reasons: pe colonoscopy consult Intake Note: Donell presents in the office as a consult for a colonoscopy. CC: He states that he is not having any concerns other than he had a hx of colon cancer. He was irritated in his rectum and he tried prep H but he is not sure if he has a hemorrhoid or a polyp in there. He states he felt something in there and because he has a hx of a colon tumor he is a little concerned. 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 Mas- trans anal excision-went to [place] for chemo- radiation- C He has rectal irritation- feel there is something in there- no rectal bleeding or change in stools-no abdominal pain Last colonoscopy 2019- Dr. Flowers- Bowels are normal Appetite good BS running high He is very anxious due to hx rectal ca- certainly understandable- He gets a feeling of pain the upper stomach- seems to be gone-however comes and goes- nothing specific make it better or worse-details limited -denies acid-expresses worry- as well No N/V/D- fever or chills PFSH Medical History (Updated 08/20/23 @ 12:21 by Leonarda Lovett PA-C) Shoulder pain, left DM type 2 (diabetes mellitus, type 2) Annual physical exam Proteinuria Essential hypertension Hyperlipidemia LDL goal <100 Overweight (BMI 25.0-29.9) Anal cancer Diabetic eye exam HTN (hypertension) Hyperlipidemia Diabetes Cellulitis Cancer of colon with rectum Surgical History Hx of colectomy H/O colonoscopy Family History Father Colon cancer Mother Lung cancer Social History Household Members: Spouse Housing: House Do you presently have visiting nurse or other home services: No Alcohol intake: former Patient Tobacco Use Status: Never used Tobacco e-Cigarette/Vaping Use: Never Used service: No Current occupational status: retired Cognitive needs: No Hearing needs: No Vision needs: Yes Review of Systems Const All systems reviewed & are unremarkable except as noted in HPI and below Card Denies chest pain, Denies rapid heart rate and Denies dyspnea Resp Denies dyspnea GI Reports abdominal pain (intermittent-), Denies change in bowel habits, Denies change in stool character, Denies heartburn, Denies nausea and Denies vomiting Psych Reports anxiety Physical Exam Vital Signs: Last Vital Signs Pulse 54 08/08/23 11:32 BP 193/89 H 08/08/23 11:32 BMI result Body Mass Index 29.5 Const General: cooperative, comfortable and no acute distress Orientation/consciousness: patient oriented x3 Limitations: no limitations Eyes Sclerae: sclerae normal Resp Effort & Inspection: normal respiratory effort and able to speak in complete sentences Auscultation: clear to auscultation bilaterally, no rales, no rhonchi and no wheezes Cardio Rate: regular rate Rhythm: regular rhythm Heart sounds: S1 normal heart sound present and S2 normal heart sound present GI Palpation (GI): Soft to palpation and nontender Percussion: Yes normal to percussion Auscultation: normal bowel sounds Rectal Exam - Male: Yes normal sphincter tone, No tenderness and Yes other (mild thickening @ 5 0'clock non tender- no bleeding-no stool ) Skin General skin exam: no rashes or lesions noted Neuro General: patient oriented x3 Extrem General: Yes full ROM Psych Appearance: grossly normal and well kempt Mental Status: mental status grossly normal Speech and movement: Normal speech and movement present Affect: Anxious affect present Attitude: cooperative Thought process: Normal thought process present Thought content: Normal thought content present Results Reviewed Results Reviewed: Results Reviewed: Name: Ray Gross #: [id number] Age/Sex: 65/MAttending: Quique Flowers MD : 1955Submitted by: Quique Flowers MD : 07/25/20 MR #: [id number]: 07/25/20 Status: DEP SDCLocation: HO.SSS Diagnosis A. Ileocecal valve, biopsy: Ileocolonic mucosa within normal limits. B. Colon, sigmoid polyp, biopsy: Hyperplastic mucosal polyp. C. Rectum, polypectomy: Tubular adenoma; no high grade dysplasia or carcinoma seen. Clinical History Pre-Op Dx: Screening Colonoscopy Findings: Two polyps removed Scar of transanal resection seen at 5 cms without recurrent polyp. Prominent fold on distal lip of ICV - biopsied. Moderate diverticulosis seen in the left colon Plan: Await pathology results Patient has an appointment on 08/08/20 in the GI Clinic with ANOOP Og. Repeat Colonoscopy interval based on path results - in 3-5 years if polyps are adenomatous and 10 years if polyps are hyperplastic. Above findings were reviewed with the patient and colon polyps and diverticulosis handouts were given in the discharge area Assessment & Plan Assessment & Plan (1) History of anal cancer: Comment: very anxious- rectal exam-no palp mass w/in reach Reassured Colonoscopy Code(s): Z85.048 - Personal history of other malignant neoplasm of rectum, rectosigmoid junction, and anus Plan: labs colonoscopy (2) Chronic upset stomach: Comment: vague, intermittent-difficult to assess-anxiety may play a role, certainly understands Code(s): K30 - Functional dyspepsia Plan: EGD Plan Labs,Call patient with results EGD and Colonoscopy MiraLax Gatorade prep Omit metformin the evening before procedure as well as day of Orders: Orders Vitamin B12 and Folate 08/08/23 D64.9 - Anemia, unspecified EGD/[place] Combo - GI Use Only 08/08/23 Z85.048 - Personal history of other malignant neoplasm of rectum, rectosigmoid junction, and anus, D12.8 - Benign neoplasm of rectum Erythrocyte Sedimentation Rate 08/08/23 Z85.048 - Personal history of other malignant neoplasm of rectum, rectosigmoid junction, and anus Carcinoembryonic Antigen 08/08/23 Z85.048 - Personal history of other malignant neoplasm of rectum, rectosigmoid junction, and anus EGD/[place] Combo - GI Use Only 08/08/23 Z85.048 - Personal history of other malignant neoplasm of rectum, rectosigmoid junction, and anus C Reactive Protein 08/08/23 Z85.048 - Personal history of other malignant neoplasm of rectum, rectosigmoid junction, and anus IRON PROFILE 08/08/23 Z85.048 - Personal history of other malignant neoplasm of rectum, rectosigmoid junction, and anus Ferritin 08/08/23 D64.9 - Anemia, unspecified Complete Blood Count Auto Diff 08/08/23 Z85.048 - Personal history of other malignant neoplasm of rectum, rectosigmoid junction, and anus Medications: New polyethylene glycol 3350 (Miralax) Take as directed by mouth the day before your procedure. 238 grams PO ONCE PRN 238 grams 0RF laxative effect 1 day bisacodyl (Dulcolax (bisacodyl)) Day before procedure, prep day Take 4 tablets by mouth upon awakening followed by large glass of water 20 mg (4 x 5 mg) PO ONCE 4 tabs 0RF colonoscopy prep 1 day Z12.11 - Encounter for screening for malignant neoplasm of colon Patient Instructions: Very pleasant, very anxious 68-year-old male personal history of rectal cancer vague, chronc, stomach upset Dietary modification Monitor symptoms Labs, I will call him with results reassure EGD colonoscopy Encouraged to call with any questions or concerns Coding Level of Care Code New Pt Level 4 (81670) Diagnoses History of anal cancer Z85.048 Chronic upset stomach K30 Time Spent (min) 35
[2023-08-08 11:32] VITALS: BP 193/89; PULSE 54; BMI 29.5
== END 2023-08-08 15:08 | disposition home or self-care (01) ==
PROVIDERS: PCP Internal Medicine; Visit Provider Physician Assistant
DX: Z85.048 Personal history of other malignant neoplasm of rectum, rectosigmoid junction, and anus (principal); K30 Functional dyspepsia
CPT/HCPCS: 99204

== ENCOUNTER 2023-08-15 08:23 | Outpatient (REF) | payer MEDICARE, SELFPAY ==
[2023-08-15 11:54] LABS: Alanine Aminotransferase 8 U/L (0-40); Albumin Level 4.1 g/dL (3.5-5.0); Alkaline Phosphatase 58 U/L (39-117); Anion Gap 12 (12-20); Aspartate Amino Transferase 18 U/L (5-37); Bilirubin Total 0.9 mg/dL (0.0-1.0); Blood Urea Nitrogen 14 mg/dL (9-16); Calcium 9.3 mg/dL (8.4-10.2); Carbon Dioxide 27 mmol/L (22-29); Chloride 107 mmol/L (96-108); Cholesterol 164 mg/dL (<200); Estimated Glomerular Filt Rate > 60; Glucose Fasting 151 mg/dL (60-99); HDL Cholesterol 55 mg/dL (>40); LDL Cholesterol Calculated 95 mg/dL (<100); Potassium 4.3 mmol/L (3.3-5.1); Sodium 142 mmol/L (135-145); Total Protein 6.8 g/dL (6.5-8.0); Triglycerides 73 mg/dL (<150)
[2023-08-15 12:10] LABS: PSA,Total (Free>4and<10) 0.29 ng/mL (0.00-4.00)
[2023-08-15 12:33] LABS: Creatinine Urine 127.13 mg/dL; Microalbum/Creatinine Ratio Ur 36.1 ug/mg cr (<30)
[2023-08-15 12:40] LABS: Estimated Average Glucose 140 mg/dL; Hemoglobin A1c % 6.5 % (<6.0)
== END 2023-08-15 08:24 | disposition home or self-care (01) ==
LOC: HO.HMGCLDS 08:23
PROVIDERS: PCP Internal Medicine; Visit Provider Internal Medicine
DX: Z00.00 Encounter for general adult medical examination without abnormal findings (principal); I10 Essential (primary) hypertension; E11.9 Type 2 diabetes mellitus without complications; N40.0 Benign prostatic hyperplasia without lower urinary tract symptoms; Z12.5 Encounter for screening for malignant neoplasm of prostate
CPT/HCPCS: 36415; 80053; 80061; 82043; 82570; 83036; 84153

== ENCOUNTER 2023-10-18 08:59 | Day surgery (SDC) | payer MEDICARE, SELFPAY ==
--- NOTE | 2023-10-17 11:59 | HO.ANESPROP2 ---
Documented by User: Justine Harrison NP 10/17/23 12:00 HPI - Anesthesia Eval Consult details Narrative: 68yo M for Upper Endoscopy and Colonoscopy [facility] Active Problems Active Problems: All Active Problems (Updated 08/20/23 @ 12:21 by Leonarda Lovett PA-C) Chronic upset stomach (Acute) History of anal cancer (Acute) BPH (benign prostatic hyperplasia) (Acute) Dog bite (Acute) Cellulitis of hand, right (Acute) Shoulder pain, left (Acute) DM type 2 (diabetes mellitus, type 2) (Acute) Annual physical exam (Acute) Essential hypertension (Acute) Hyperlipidemia LDL goal <100 (Acute) Overweight (BMI 25.0-29.9) (Acute) Tubular adenoma of rectum (Acute) Diverticulosis (Acute) Past Medical History Medical History Shoulder pain, left DM type 2 (diabetes mellitus, type 2) Annual physical exam Proteinuria Essential hypertension Hyperlipidemia LDL goal <100 Overweight (BMI 25.0-29.9) Anal cancer Diabetic eye exam HTN (hypertension) Hyperlipidemia Diabetes Cellulitis Cancer of colon with rectum Family History Family History Father Colon cancer Mother Lung cancer Family history of problems with anesthesia: No Surgical History Surgical History Hx of colectomy H/O colonoscopy History of Problems with Anesthesia: No Social History Social History Household Members: Spouse Housing: House Do you presently have visiting nurse or other home services: No Alcohol intake: former Patient Tobacco Use Status: Never used Tobacco e-Cigarette/Vaping Use: Never Used Use of substances other than those prescribed or required for medical reasons: No Are you DNR?: No Advance Directives: No Advance Directives Information Provided: Yes service: No Current occupational status: retired Cognitive needs: No Hearing needs: No Vision needs: Yes Meds Allergies Allergy/AdvReac Type Severity Reaction Status Date / Time No Known Allergies Allergy Verified 10/18/23 10:03 Exam Pertinent Lab Results Pertinent Lab Results: Laboratory Tests 08/08/23 08/15/23 12:52 08:33 WBC 7.2 Hgb 14.9 Hct 44.7 Plt Count 170 Sodium 142 Potassium 4.3 Chloride 107 Carbon Dioxide 27 BUN 14 Creatinine 0.93 Assessment and Plan Assessment Anesthesia Assessment: Chart Reviewed Final Anesthetic Review Family History of Problems with Anesthesia: No History of Problems with Anesthesia: No Documented by User: Bharti Osman MD 10/18/23 10:30 [facility] Past Medical History Medical History Shoulder pain, left DM type 2 (diabetes mellitus, type 2) Annual physical exam Proteinuria Essential hypertension Hyperlipidemia LDL goal <100 Overweight (BMI 25.0-29.9) Anal cancer Diabetic eye exam HTN (hypertension) Hyperlipidemia Diabetes Cellulitis Cancer of colon with rectum Family History Family History Father Colon cancer Mother Lung cancer Surgical History Surgical History Hx of colectomy H/O colonoscopy Social History Social History Household Members: Spouse Housing: House Do you presently have visiting nurse or other home services: No Alcohol intake: former Patient Tobacco Use Status: Never used Tobacco e-Cigarette/Vaping Use: Never Used Use of substances other than those prescribed or required for medical reasons: No Are you DNR?: No Advance Directives: No Advance Directives Information Provided: Yes service: No Current occupational status: retired Cognitive needs: No Hearing needs: No Vision needs: Yes Meds Allergies Allergy/AdvReac Type Severity Reaction Status Date / Time No Known Allergies Allergy Verified 10/18/23 10:03 Exam Airway Mallampati Class: II TM Dist: >3cm Neck ROM: Full Heart: rrr Lungs: cta Assessment and Plan Assessment Anesthesia Assessment: Anesthesia Plan Discussed Final Anesthetic Review NPO: Yes ASA Class: III Final Preanesthetic Review: No Changes in Pt Med Stat, Meds/Allgs Chart Reviewed and Consent Obtained/Reviewed Patient Risk: Intermediate Procedure Risk: Intermediate Anesthetic Plan Anesthetic Plan: MAC: Disposition: Standard PACU
[2023-10-18 10:09] VITALS: BMI 28.6
[2023-10-18 10:12] VITALS: BP 157/88; PULSE 51; RESP 16; TEMP 36.4; O2SAT 99
--- NOTE | 2023-10-18 10:29 | MHC.SHP ---
Pre-Procedural Eval Section A - 24 Hr Update-Section A only Date of Service: 10/18/23 The patient is an INPATIENT: No The patient has been examined within 24 hours of the surgical procedure. The History & Physical has been completed within 30 days and I have reviewed it.: No Section B - Complete if H&P > 30 days Chief Complaint: Screening, FU of rectal cancer Details of Present Illness: A 65-year-old male referred for screening colonoscopy history of rectal cancer with transanal excision-last colonoscopy 2014 showed diverticulosis no polyps. Relevant Family History (Specify if Yes): Yes Relevant Social History: None Present Medications: see Short Stay Collaborative assessment Medical History: Significant History ( Colon cancer - 1998. TYPE 2 DIABETES. Hyperlipidemia. Hypertension. ) History of Previous Operations: Relevant previous surgery/procedure and date(s) (colectomy ([facility]) 1998 colonoscopy ([facility]) 09/12/2010 colonoscopy 2014 ) Allergies: Allergies Allergy/AdvReac Type Severity Reaction Status Date / Time No Known Allergies Allergy Verified 10/18/23 10:03 Review of Systems Sugical H&P ROS: Negative: Constitution, Cardiovascular, Respiratory and Gastrointestinal Exam Surgical H&P Exam: Normal: Heart, Normal: Lungs, Normal: Extremities and Normal: Abdomen Plan Diagnosis/Plan: Unchanged I have reviewed the history and physical and performed a pertinent physical examination on my patient. No changes have occurred unless specified. Time Spent With Patient Time: Total time managing care of this patient today ____ minutes.
[2023-10-18] MEDS: Lactated Ringers 1,000 ML 100 ML IVCONT (10:33)
[2023-10-18 10:43] LABS: Glucose, Whole Blood 140 mg/dL (60-115)
--- NOTE | 2023-10-18 10:45 | W.PM.OPN ---
Operative Note Operative Note Date of Service: 10/18/23 Narrative: FLEXIBLE TRANSORAL UPPER GASTROINTESTINAL ENDOSCOPY WITH BIOPSIES AND COLONOSCOPY TILL CECUM WITH BIOPSIES AND SNARE POLYPECTOMY Pre-op diagnosis: Colon cancer screening, FU of rectal cancer, dyspepsia, upper abdominal pain Post-op diagnosis: Gastritis, Gastric polyp, Colon Polyps, Diverticulosis, Hemorrhoids Endoscopist:? Quique Flowers MD Anesthesia:?MAC UPPER ENDOSCOPY Consent: Indications for the procedure and potential complications of bleeding, perforation, reaction to medications and missed diagnosis were discussed with the patient and informed consent was obtained. Instrument: Olympus GIF H 190 mid size upper endoscope Monitoring: Vital signs and clinical assessment, continuous EKG monitoring, Pulse oximetry, Carbon Dioxide monitoring and blood pressure monitoring were done throughout the procedure. Procedure: The patient was placed in the left lateral decubitis position and pre-procedure medications were administered and a bite block was placed. The endoscope was inserted into the mouth and advanced under direct vision to the third part of duodenum. A careful inspection was made as the upper endoscope was withdrawn including a retroflexed examination of the proximal stomach; Findings and interventions are described below. Findings: Larynx: Normal Esophagus: GE junction at 40 cms. No esophagitis or Crowell's. Stomach: A few 4-8 mm benign appearing polyps in the gastric body - biopsied. Moderate gastric erythema - biopsies were obtained from the antrum. Grade 2 flap valve on retroflexed examination of the cardia. Duodenum: Normal bulb and a medium sized tatyana-ampullary diverticulum. Biopsies were obtained from descending duodenum to check for celiac sprue Intervention: Biopsies as noted above COLONOSCOPY PROCEDURE NOTE Consent: Indications for the procedure and potential complications of bleeding, perforation, reaction to medications and missed diagnosis were discussed with the patient and informed consent was obtained. Instrument: Olympus CF H 190 L variable stiffness adult colonoscope Monitoring: Vital signs and clinical assessment, intermittent blood pressure monitoring, continuous EKG monitoring, Pulse oximetry and Carbon Dioxide monitoring were done throughout the procedure. Colon withdrawl time was 30 minutes. Procedure: The patient was placed in the left lateral decubitis position and pre-procedure medications were administered. After a digital rectal examination of the ano-rectum, the video colonoscope was inserted into the rectum and advanced through the colon to the cecum. The colonoscope was slowly withdrawn in a retrograde panoramic fashion and the colon mucosa was carefully examined including a retroflexed view of the rectum. Findings and interventions are described below. Procedure Difficulty: : Without difficulty Findings: Terminal Ileum: Not evaluated Cecum: A 9-10 mm sessile polyp - removed with a hot snare and polyp was not retrieved Ascending Colon: A 10 - 12 mm sessile polyp in the mid AC - removed with a hot snare. A 9 - 10 mm sessile polyp in the distal AC - removed with a cold snare. Transverse Colon: Normal Descending Colon: Moderate diverticulosis Sigmoid Colon: Moderate diverticulosis Rectum: A 7-8 mm sessile polyp - removed with a cold biopsy. Scar of transanal resection seen at 5 cms without recurrent polyp. Ano-rectum: Small internal hemorrhoids Colon preparation: Good after some irrigation Impression and Post Procedure Diagnosis: Endoscopy Findings: STOMACH: Colonoscopy Findings: One small and two medium sized polyps removed (two polyps were not retrieved) Moderate diverticulosis seen in the left colon Small hemorrhoids on antegrade exam. Plan: Await pathology results Patient to schedule a FU appointment in the GI Clinic with ANOOP Lovett. Repeat Colonoscopy interval based on path results - in 3 years if polyps are adenomatous and due to a hx of adenomatous colon polyps (adult colonoscope for future colonoscopies). Above findings were reviewed with the patient and colon polyps and diverticulosis handouts were given in the discharge area BIOPSIES SHOWED: A. Small bowel, biopsy: Small intestinal mucosa within normal limits; negative for celiac disease. B. Stomach, antrum, biopsy: Antral-type mucosa with mild chronic inactive inflammation; no Helicobacter organisms seen. C. Stomach, polyp, biopsy: Oxyntic mucosa with mild chronic inactive inflammation; no Helicobacter organisms seen. D. Colon, ascending, polypectomy: Tubular adenoma; negative for high-grade dysplasia or carcinoma. E. Ileocecal valve, biopsy: Ileocolonic mucosa within normal limits. F. Rectum, polypectomy: Hyperplastic mucosal polyp
[2023-10-18 11:38] VITALS: BP 148/79; PULSE 48; RESP 16; TEMP 36.2; O2SAT 95
[2023-10-18 11:53] VITALS: BP 172/89; PULSE 51; RESP 16; TEMP 36.2; O2SAT 100
== END 2023-10-18 12:20 | disposition home or self-care (01) ==
PROVIDERS: PCP Internal Medicine; Visit Provider Internal Medicine Gastroenterology
PROC: (CPT 43239; principal; 2023-10-18 10:20)
DX: K31.7 Polyp of stomach and duodenum (principal); K29.60 Other gastritis without bleeding; K21.9 Gastro-esophageal reflux disease without esophagitis; K30 Functional dyspepsia; Z12.11 Encounter for screening for malignant neoplasm of colon; D12.2 Benign neoplasm of ascending colon; K62.1 Rectal polyp; K57.30 Diverticulosis of large intestine without perforation or abscess without bleeding; K64.8 Other hemorrhoids; Z85.048 Personal history of other malignant neoplasm of rectum, rectosigmoid junction, and anus; E11.9 Type 2 diabetes mellitus without complications; I10 Essential (primary) hypertension; E78.5 Hyperlipidemia, unspecified; Z79.02 Long term (current) use of antithrombotics/antiplatelets; Z79.84 Long term (current) use of oral hypoglycemic drugs; Z79.899 Other long term (current) drug therapy
CPT/HCPCS: 43239; 45385; 45380; 82947; 88305; 88313; 88342; J2704

== ENCOUNTER → 2023-10-18 08:59 | Outpatient (BNV) | payer MEDICARE, SELFPAY | PROVIDERS: PCP Internal Medicine; Visit Provider Internal Medicine Gastroenterology | DX: Z12.11 Encounter for screening for malignant neoplasm of colon (principal); K63.5 Polyp of colon; K57.90 Diverticulosis of intestine, part unspecified, without perforation or abscess without bleeding; K64.8 Other hemorrhoids; K31.7 Polyp of stomach and duodenum | CPT/HCPCS: 43239; 45380; 45385 ==

== ENCOUNTER 2023-11-19 13:37 | Outpatient (REF) | payer MEDICARE, SELFPAY ==
[2023-11-24 12:46] LABS: H Pylori Breath Test Negative (Negative)
== END 2023-11-19 13:38 | disposition home or self-care (01) ==
LOC: HO.LNP 13:37
PROVIDERS: PCP Internal Medicine; Visit Provider Physician Assistant
DX: A04.8 Other specified bacterial intestinal infections (principal); D12.8 Benign neoplasm of rectum; K57.90 Diverticulosis of intestine, part unspecified, without perforation or abscess without bleeding; K30 Functional dyspepsia; Z85.048 Personal history of other malignant neoplasm of rectum, rectosigmoid junction, and anus
CPT/HCPCS: 83013; 99212

== ENCOUNTER 2023-11-19 13:37 | Outpatient (AMB) | payer MEDICARE, SELFPAY ==
[2023-11-19 13:47] VITALS: BP 143/65; PULSE 51; BMI 28.7
--- NOTE | 2023-11-19 13:47 | MHC.OFFVIS ---
Intake Vital Signs 11/19/23 13:47 Height 5 ft 8 in Weight 189 lb BMI 28.7 BP 143/65 H Blood Pressure Location Lt brachial Position Sitting Pulse 51 Intake Visit Reasons: s/p EGD/[facility] Intake Note: Patient follow up for EGD/Colonoscopy results. Patient denies any GI issues. System Safety Manager Required: No Accompanied by: Self / Same As Patient Allergies No Known Allergies Allergy (Verified 11/19/23 13:46) HPI HPI Comments History of Present Illness Details A 68 y/o male with history of rectal cancer f/u after EGD/ colonoscopy with polypectomy He tolerated procedure well-he is very relieved He does have upset stomach here there is unsure if this is caused by acid No other GI or general complaints today Reviewed procedure report pathology recommendation Opportunity for questions answered to assess for He has no nausea, vomiting, hematemesis, hematochezia fever chills PFSH Medical History Shoulder pain, left DM type 2 (diabetes mellitus, type 2) Annual physical exam Proteinuria Essential hypertension Hyperlipidemia LDL goal <100 Overweight (BMI 25.0-29.9) Anal cancer Diabetic eye exam HTN (hypertension) Hyperlipidemia Diabetes Cellulitis Cancer of colon with rectum Surgical History History of esophagogastroduodenoscopy (EGD) Hx of colectomy H/O colonoscopy Family History Father Colon cancer Mother Lung cancer Social History Household Members: Spouse Housing: House Do you presently have visiting nurse or other home services: No Alcohol intake: former Patient Tobacco Use Status: Never used Tobacco e-Cigarette/Vaping Use: Never Used service: No Current occupational status: retired Cognitive needs: No Hearing needs: No Vision needs: Yes Review of Systems Const All systems reviewed & are unremarkable except as noted in HPI and below Card Denies chest pain and Denies dyspnea Resp Denies dyspnea GI Reports dyspepsia Physical Exam Vital Signs: Last Vital Signs Pulse 51 11/19/23 13:47 BP 143/65 H 11/19/23 13:47 BMI result Body Mass Index 28.7 Const General: cooperative, healthy appearing, comfortable and no acute distress Orientation/consciousness: patient oriented x3 Limitations: no limitations Resp Effort & Inspection: normal respiratory effort and able to speak in complete sentences Neuro General: patient oriented x3 Extrem General: Yes full ROM Psych Appearance: grossly normal Mental Status: mental status grossly normal Speech and movement: Normal speech and movement present Affect: normal affect Attitude: cooperative Thought process: Normal thought process present Thought content: Normal thought content present Insight: Good insight present (Psych) Judgement: Good judgement present (Psych) Results Reviewed Results Reviewed: Findings: Terminal Ileum: Not evaluated Cecum: A 9-10 mm sessile polyp - removed with a hot snare and polyp was not retrieved Ascending Colon: A 10 - 12 mm sessile polyp in the mid AC - removed with a hot snare. A 9 - 10 mm sessile polyp in the distal AC - removed with a cold snare. Transverse Colon: Normal Descending Colon: Moderate diverticulosis Sigmoid Colon: Moderate diverticulosis Rectum: A 7-8 mm sessile polyp - removed with a cold biopsy. Scar of transanal resection seen at 5 cms without recurrent polyp. Ano-rectum: Small internal hemorrhoids Colon preparation: Good after some irrigation Impression and Post Procedure Diagnosis: Endoscopy Findings: STOMACH: Colonoscopy Findings: One small and two medium sized polyps removed (two polyps were not retrieved) Moderate diverticulosis seen in the left colon Small hemorrhoids on antegrade exam. Plan: Await pathology results Patient to schedule a FU appointment in the GI Clinic with [facility]. Repeat Colonoscopy interval based on path results - in 3 years if polyps are adenomatous and due to a hx of adenomatous colon polyps (adult colonoscope for future colonoscopies). Above findings were reviewed with the patient and colon polyps and diverticulosis handouts were given in the discharge area BIOPSIES SHOWED: A. Small bowel, biopsy: Small intestinal mucosa within normal limits; negative for celiac disease. B. Stomach, antrum, biopsy: Antral-type mucosa with mild chronic inactive inflammation; no Helicobacter organisms seen. C. Stomach, polyp, biopsy: Oxyntic mucosa with mild chronic inactive inflammation; no Helicobacter organisms seen. D. Colon, ascending, polypectomy: Tubular adenoma; negative for high-grade dysplasia or carcinoma. E. Ileocecal valve, biopsy: Ileocolonic mucosa within normal limits. F. Rectum, polypectomy: Hyperplastic mucosal polyp Assessment & Plan Assessment & Plan (1) History of anal cancer: Comment: History ..... Reassured- with colonoscopy- and path Colonoscopy Code(s): Z85.048 - Personal history of other malignant neoplasm of rectum, rectosigmoid junction, and anus Plan: Continue to monitor as recommended by MD (2) Tubular adenoma of rectum: Comment: Pleasant 65-year-old male status post anal cancer follows up after recent colonoscopy. polyp in the area of rectum, pathology -tubular adenoma. , had many questions answered, reassured with pathology He will repeat colonoscopy in 3- years Code(s): D12.8 - Benign neoplasm of rectum Plan: Encouraged to call with any questions or concerns (3) Diverticulosis: Code(s): K57.90 - Diverticulosis of intestine, part unspecified, without perforation or abscess without bleeding Plan: ER protocol (4) Chronic upset stomach: Comment: vague, intermittent-difficult to assess-anxiety may play a role, certainly understands Code(s): K30 - Functional dyspepsia Plan: HP-UBT-if pos- tx pantoprazole 20 mg Plan HP Ppi 3 year repeat colon Orders: Orders H Pylori Breath Test 11/19/23 A04.8 - Other specified bacterial intestinal infections Medications: New pantoprazole 20 mg PO QAM 30 tabs 6RF Patient Instructions: Reviewed procedure report, pathology and recommendation H pylori breath test today He may begin pantoprazole 20 mg today Reflux precautions reviewed He will call 48 hours for results of HP if positive will treat Diverticulosis/diverticulitis ER protocol review Maintain high-fiber diet Repeat asymptomatic colonoscopy 3 years-adult scope Encouraged to call with questions or concerns Coding Level of Care Code Est Pt Level 3 (46105) Diagnoses History of anal cancer Z85.048 Tubular adenoma of rectum D12.8 Diverticulosis K57.90 Chronic upset stomach K30 Time Spent (min) 40 Comment HP- ubt
== END 2023-11-19 14:30 | disposition home or self-care (01) ==
PROVIDERS: PCP Internal Medicine; Visit Provider Physician Assistant
DX: Z85.048 Personal history of other malignant neoplasm of rectum, rectosigmoid junction, and anus (principal); D12.8 Benign neoplasm of rectum; K57.90 Diverticulosis of intestine, part unspecified, without perforation or abscess without bleeding; K30 Functional dyspepsia
CPT/HCPCS: 99213

== ENCOUNTER 2024-01-21 06:44 | Outpatient (REF) | payer MEDICARE, SELFPAY ==
[2024-01-21 10:19] LABS: MANUAL DIFF FLAG NO
[2024-01-21 10:45] LABS: Basophils Absolute Auto 0.1 X10*3/uL (0.0-0.2); Basophils Percent Auto 1.1 % (0-2); Eosinophils Absolute Auto 0.2 X10*3/uL (0.0-0.4); Eosinophils Percent Auto 4.1 % (0-4); Hematocrit 42.4 % (42.0-52.0); Hemoglobin 14.3 g/dl (14.0-18.0); Imm Gran Abs Auto 0.02 X10*3/uL (0.00-0.03); Imm Gran Pct Auto 0.4 % (0.0-0.4); Lymphocytes Absolute Auto 1.5 X10*3/uL (1.2-4.9); Lymphocytes Percent Auto 26.2 % (20-40); Mean Corpuscular HGB Conc 33.7 g/dl (31.0-36.0); Mean Corpuscular Hemoglobin 30.6 pg (27.0-33.0); Mean Corpuscular Volume 90.6 fL (80.0-98.0); Mean Platelet Volume 10.6 fL (9.4-12.4); Monocytes Absolute Auto 0.5 X10*3/uL (0.1-1.2); Monocytes Percent Auto 9.1 % (2-11); Neutrophils Absolute Auto 3.3 x10*3/uL (2.0-8.3); Neutrophils Percent Auto 59.1 % (45-73); Platelet Count 165 X10*3/uL (160-400); Red Blood Count 4.68 X10*6/uL (4.60-5.80); Red Cell Distribution Width 13.4 % (11.0-16.0); White Blood Count 5.6 X10*3/uL (4.8-10.8)
[2024-01-21 11:14] LABS: Estimated Average Glucose 137 mg/dL; Hemoglobin A1c % 6.4 % (<6.0)
[2024-01-21 11:28] LABS: Creatinine Urine 130.64 mg/dL; Microalbum/Creatinine Ratio Ur 21.4 ug/mg cr (<30)
[2024-01-21 11:29] LABS: Alanine Aminotransferase 12 U/L (0-40); Albumin Level 4.2 g/dL (3.5-5.0); Alkaline Phosphatase 48 U/L (39-117); Anion Gap 15 (12-20); Aspartate Amino Transferase 23 U/L (5-37); Bilirubin Total 0.7 mg/dL (0.0-1.0); Blood Urea Nitrogen 12 mg/dL (9-16); Calcium 9.7 mg/dL (8.4-10.2); Carbon Dioxide 24 mmol/L (22-29); Chloride 107 mmol/L (96-108); Cholesterol 142 mg/dL (<200); Estimated Glomerular Filt Rate > 60; Glucose Fasting 143 mg/dL (60-99); HDL Cholesterol 46 mg/dL (>40); LDL Cholesterol Calculated 81 mg/dL (<100); Potassium 4.2 mmol/L (3.3-5.1); Sodium 142 mmol/L (135-145); Total Protein 6.8 g/dL (6.5-8.0); Triglycerides 79 mg/dL (<150)
== END 2024-01-21 06:45 | disposition home or self-care (01) ==
LOC: HO.HMGCLDS 06:44
PROVIDERS: PCP Internal Medicine; Visit Provider Internal Medicine
DX: I10 Essential (primary) hypertension (principal); E78.5 Hyperlipidemia, unspecified; E11.9 Type 2 diabetes mellitus without complications
CPT/HCPCS: 36415; 80053; 80061; 82043; 82570; 83036; 85025

== ENCOUNTER 2024-01-22 09:26 | Outpatient (AMB) | payer MEDICARE, SELFPAY ==
[2024-01-22 09:33] VITALS: BP 130/76; PULSE 47; O2SAT 98; BMI 29.2
--- NOTE | 2024-01-22 09:33 | A.OFFVIS_ITS ---
Intake Vital Signs 01/22/24 09:33 Height 5 ft 8 in Weight 192 lb BMI 29.2 BP 130/76 Blood Pressure Location Lt brachial Position Sitting Pulse 47 L Pulse Source Pulse Oximeter Pulse Oximetry (%) 98 Oxygen Delivery Method Room Air Intake Visit Reasons: AWV Allergies No Known Allergies Allergy (Verified 01/22/24 09:48) Medication List - Last Reconciled 01/22/24 by Justine Toribio MD lisinopril 10 mg PO DAILY metformin ER 1,000 mg (2 x 500 mg) PO QPM pantoprazole 20 mg PO QAM pravastatin 20 mg PO DAILY HPI AWV HPI Details Initiated the conversation about Advanced Directives. Advanced Directives help? patients prepare for current and future decisions about their medical treatment? and place of care. Discussed with patient that it is a process where a patients? current condition and prognosis are reviewed, their wishes for information? regarding their illness are elicited, and likely medical dilemmas are presented? and options discussed. The form can be amended as needed, reviewed yearly and? make changes as needed IPPE/AWV ? year old presents? for her ? Annual? Wellness Visit, initial visit.? Medical / Social History Reviewed? Past Medical History ?Yes? . ? [place]? of Care / Care Team list updated ?Yes . ? Surgical/Hospitalization? History ?Yes . ? Current Medications? (including OTC and supplements) ?Yes . ? Family History ?Yes? . ? Tobacco? Control form ?Yes . ? AUDIT-C (Alcohol use) form? ?Yes . ? Illicit drug use in Social? History ?Yes . ? Current diagnosis of? depression? ?No ? Appropriate PHQ2/PHQ9? completed ?Yes . ? Data entered by ?Medical? Force Variation Equipment Tender and reviewed by provider ? Fall Risk ? Fall? History? Have you had any falls with? injury in the past year? ?No . ? Have you had two or more? falls in the past year? ?No . ? Fall Risk Assessment: ?No? falls in the past year . ? HRA filled out by? the patient, reviewed by Provider and scanned. ? IPPE/AWV ? Balance? [place]? ?Yes . ? Tandem? walk ?Yes . ? Walk and? Turn ?Yes . ? Rise from? sit to stand ?Yes . ?Vision? Corrective? lens ?Yes ? Vision? screen ? Up-to-date, has an appointment [] for vision? screening and glaucoma screening ?Hearing? Whisper? test ?pass .? Initiated the conversation about Advanced Directives. Advanced Directives help? patients prepare for current and future decisions about their medical treatment? and place of care. Discussed with patient that it is a process where a patients? current condition and prognosis are reviewed, their wishes for informa tion? regarding their illness are elicited, and likely medical dilemmas are presented? and options discussed. The form can be amended as needed, reviewed yearly and? make changes as needed Written? Plan?Completed. See Patient? Documents. PFSH Medical History (Updated 01/22/24 @ 11:08 by Justine Toribio MD) Shoulder pain, left DM type 2 (diabetes mellitus, type 2) Annual physical exam Proteinuria Essential hypertension Hyperlipidemia LDL goal <100 Overweight (BMI 25.0-29.9) Anal cancer Diabetic eye exam HTN (hypertension) Hyperlipidemia Diabetes Cellulitis Cancer of colon with rectum Surgical History History of esophagogastroduodenoscopy (EGD) Hx of colectomy H/O colonoscopy Family History Father Colon cancer Mother Lung cancer Social History Household Members: Spouse Housing: House Do you presently have visiting nurse or other home services: No Alcohol intake: former Patient Tobacco Use Status: Never used Tobacco e-Cigarette/Vaping Use: Never Used service: No Current occupational status: retired Cognitive needs: No Hearing needs: No Vision needs: Yes Questionnaire Medicare Wellness Checkup [age] What gender do you identify with?: male During the past 4 weeks, how much have you been bothered by emotional problems such as feeling anxious, depressed, irritable, sad or downhearted, and blue?: not at all During the past 4 weeks, has your physical & emotional health limited your social activities with family, friends, neighbors, or groups?: not at all During the past 4 weeks, how much bodily pain have you generally had?: very mild pain During the past 4 weeks, was someone available to help you if you needed & wanted help?: yes, as much as I wanted During the past 4 weeks, what was the hardest physical activity you could do for at least 2 minutes?: heavy Can you get to places out of walking distance without help? (For eg., can you travel alone on buses, taxis or drive your car?): Yes Can you go shopping for groceries or clothes without someone's help?: Yes Can you prepare your own meals?: Yes Can you do your housework without help?: Yes Because of any health problems, do you need the help of another person with your personal care needs such as eating, bathing, dressing or getting around the house?: No Can you handle your own money without help?: Yes During the past 4 weeks, how would you rate your health in general?: very good During the past 4 weeks how have things been going for you?: very well; could hardly better Are you having difficulties driving your car?: no Do you always fasten your seat belt when you are in a car?: yes, usually During past 4 weeks, have you been bothered by the following: never: Falling or dizzy when standing up, Sexual problems?, Trouble eating well?, Teeth or denture problems?, Problems using the telephone? and Tiredness or fatigue? Have you fallen 2 or more times in the past year?: No Are you afraid of falling?: No Are you a smoker?: no During the past 4 weeks, how many drinks of wine, beer, or other alcoholic beve rages did you have?: no alcohol at all Do you exercise for about 20 minutes 3 or more times a week?: yes, some of the time Have you been given information to help with the following?: no: Hazards in your house that might hurt you? and no: Keeping track of your medications? How often do you have trouble taking medicines the way you have been told to take them?: I always take medicine as prescribed How confident are you that you can control & manage most of your health problems?: very confident What is your race?: White Mini Mental State Exam (MMSE) Orientation What is the (year) (season) (date) (day) (month)?: year, season, date, day and month Where are we (state) (county) (town or city) (hospital) (floor)?: state, county, town or city, hospital/clinic and floor Registration Name of 3 unrelated objects clearly and slowly, then ask patient to repeat all 3 of them. (1st repeat determines score. Make sure they can repeat all three): object 1, object 2 and object 3 Attention & Calculation (CHOOSE ONE) Spell WORLD backwards (DLROW): 5 letters Recall Ask patient to repeat the 3 items from question #3.: object 1, object 2 and object 3 Language Show patient a wristwatch & ask what it is. Repeat for pencil.: watch and pencil Ask the patient to repeat the phrase 'No ifs, ands, or buts' after you.: correct Ask the patient to 'take a piece of paper with their right hand' 'fold paper in half' 'place paper on floor': take paper in right hand, fold paper in half and place paper on floor Print the sentence 'CLOSE YOUR EYES' on a piece. If patient actually closes eyes then score.: followed written direction Give patient a blank piece of paper & ask to write a sentence. Score if it contains a noun & verb.: sentence contains subject and verb Score Score: 29 Activity of Daily Living Bathing - sponge bath, tub bath or shower: receives no assistance (gets in/out by self, if usual bathing means Dressing - getting clothes from closets & drawers, including inner/outer garments & fasteners.: gets clothes & gets completely dressed without help Toileting - going to the 'toilet room' for urine/bowel elimination & cleaning self/arranging clothes: goes to toilet room, cleans self, arranges clothes without help Transfer: moves in & out of bed and chair without help (may use support object) Continence: controls urination/bowel movements completely by self Feeding: feeds self without help Total Score: 0 Information obtained from: patient Using telephone: independent Traveling: independent Shopping: independent Preparing meals: independent Housework: independent Taking medicine: independent Managing money: independent PHQ-9 Over the last 2 weeks, how often have you been bothered by any of the following problems? 1. Little interest or pleasure in doing things: not at all 2. Feeling down, depressed, or hopeless: not at all 3. Trouble falling or staying asleep, or sleeping too much: not at all 4. Feeling tired or having little energy: not at all 5. Poor appetite or overeating: not at all 6. Feeling bad about yourself - or that you are a failure or have let yourself or your family down: not at all 7. Trouble concentrating on things, such as reading the newspaper or watching television: not at all 8. Moving or speaking so slowly that other people could have noticed. Or the opposite - being so fidgety or restless that you have been moving around a lot more than usual: not at all 9. Thoughts that you would be better off or of hurting yourself in some way: not at all Total score: 0 Depression Screening Interpretation: Negative Depression Screening Done: Yes Source: Developed by Drs. Jacob Whitlock, Eden Norris, Deepak Crews and colleagues, with an educational drew from [employer] Review of Systems Const All systems reviewed & are unremarkable except as noted in HPI and below Reports no additional complaints Eyes Reports no additional complaints ENT Reports no additional complaints Card Reports no additional complaints Resp Reports no additional complaints GI Reports no additional complaints Reports no additional complaints Musc Reports no additional complaints Physical Exam Vital Signs: Last Vital Signs Pulse 47 L 01/22/24 09:33 BP 130/76 01/22/24 09:33 Pulse Ox 98 01/22/24 09:33 Oxygen Delivery Method Room Air 01/22/24 09:33 BMI result Body Mass Index 29.2 Const General: no acute distress HEENT Head: Yes normal to inspection Ears: hearing grossly normal bilaterally Eyes General: appearance normal, both eyes and all related structures Neck Neck: Yes no lymphadenopathy and Yes supple Resp Effort & Inspection: normal respiratory effort Auscultation: clear to auscultation bilaterally Cardio Rhythm: regular rhythm Heart sounds: S1 normal heart sound present and S2 normal heart sound present GI Inspection: Yes normal to inspection Palpation (GI): Soft to palpation Percussion: Yes normal to percussion Auscultation: normal bowel sounds Extrem General: Yes no clubbing, cyanosis or edema Assessment & Plan Assessment & Plan (1) DM type 2 (diabetes mellitus, type 2): Code(s): E11.9 - Type 2 diabetes mellitus without complications Plan: A1C is 6.4, ADA diet, regular exercise, weight loss discussed with the patient he declined increasing the dose of metformin. Patient will follow-up in 4 months with a fasting labs before (2) Annual physical exam: Code(s): Z00.00 - Encounter for general adult medical examination without abnormal findings Plan: Well-balanced diet regular exercise discussed with the patient (3) Essential hypertension: Code(s): I10 - Essential (primary) hypertension Plan: Continue lisinopril (4) Hyperlipidemia LDL goal <100: Code(s): E78.5 - Hyperlipidemia, unspecified Plan: Continue statin (5) Overweight (BMI 25.0-29.9): Code(s): E66.3 - Overweight Plan: Weight loss discussed with the patient (6) Tubular adenoma of rectum: Comment: colonoscopy 10/2023 3 polyps -tubular adenoma. He will repeat colonoscopy in 3- years Code(s): D12.8 - Benign neoplasm of rectum Plan: Follow-up with GI for repeat colonoscopy in 3 years Orders: Orders Microalbumin, Random (w Creat) 4 Months D12.8 - Benign neoplasm of rectum, E11.9 - Type 2 diabetes mellitus without complications, E78.5 - Hyperlipidemia, unspecified Complete Blood Count Auto Diff 4 Months D12.8 - Benign neoplasm of rectum, E11.9 - Type 2 diabetes mellitus without complications, E78.5 - Hyperlipidemia, unspecified Comprehensive [place]. Panel Fast 4 Months D12.8 - Benign neoplasm of rectum, E11.9 - Type 2 diabetes mellitus without complications, E78.5 - Hyperlipidemia, unspecified Lipid Panel 4 Months D12.8 - Benign neoplasm of rectum, E11.9 - Type 2 diabetes mellitus without complications, E78.5 - Hyperlipidemia, unspecified Hemoglobin A1c 4 Months D12.8 - Benign neoplasm of rectum, E11.9 - Type 2 diabetes mellitus without complications, E78.5 - Hyperlipidemia, unspecified Quality Reporting (2019) Depression/Bipolar (159/160/161/177) PHQ-9: Total score: 0 Coding Level of Care Code Medicare Subsequent (G0439) Diagnoses DM type 2 (diabetes mellitus, type 2) E11.9 Annual physical exam Z00.00 Essential hypertension I10 Hyperlipidemia LDL goal <100 E78.5 Overweight (BMI 25.0-29.9) E66.3 Tubular adenoma of rectum D12.8 CPT Codes Advance Care Planning - Advance Care Planning discussion: On file, no changes ([id number]) Advance Care Planning - Time spent: 1-15 minutes, on File ([id number]) Advance Care Planning Advance Care Planning discussion: On file, no changes Forms completed: Health Care Proxy Time spent: 1-15 minutes, on File Did not discuss due to Cultural/Spiritual beliefs: Yes
== END 2024-01-22 10:52 | disposition home or self-care (01) ==
LOC: HO.HMGC 09:26
PROVIDERS: PCP Internal Medicine; Visit Provider Internal Medicine
DX: Z00.00 Encounter for general adult medical examination without abnormal findings (principal); E11.69 Type 2 diabetes mellitus with other specified complication; I10 Essential (primary) hypertension; E78.5 Hyperlipidemia, unspecified; E66.3 Overweight; D12.8 Benign neoplasm of rectum
CPT/HCPCS: 1123F; G0439

== ENCOUNTER 2024-07-20 08:28 | Outpatient (REF) | payer MEDICARE, SELFPAY ==
[2024-07-20 10:07] LABS: MANUAL DIFF FLAG NO
[2024-07-20 10:12] LABS: Basophils Absolute Auto 0.1 X10*3/uL (0.0-0.2); Basophils Percent Auto 1.3 % (0-2); Eosinophils Absolute Auto 0.2 X10*3/uL (0.0-0.4); Eosinophils Percent Auto 3.4 % (0-4); Hematocrit 43.3 % (42.0-52.0); Hemoglobin 14.3 g/dl (14.0-18.0); Imm Gran Abs Auto 0.02 X10*3/uL (0.00-0.03); Imm Gran Pct Auto 0.3 % (0.0-0.4); Lymphocytes Absolute Auto 1.4 X10*3/uL (1.2-4.9); Lymphocytes Percent Auto 22.4 % (20-40); Mean Platelet Volume 11.2 fL (9.4-12.4); Monocytes Absolute Auto 0.7 X10*3/uL (0.1-1.2); Neutrophils Absolute Auto 3.9 x10*3/uL (2.0-8.3); Neutrophils Percent Auto 61.6 % (45-73); Platelet Count 158 X10*3/uL (160-400); Red Blood Count 4.76 X10*6/uL (4.60-5.80); Red Cell Distribution Width 12.8 % (11.0-16.0); White Blood Count 6.3 X10*3/uL (4.8-10.8)
[2024-07-20 10:58] LABS: Estimated Average Glucose 131 mg/dL; Hemoglobin A1C 160.8356 umol/L; Hemoglobin A1c % 6.2 % (<6.0); Total Hemoglobin (HGBA1C) 3612.6547 umol/L
[2024-07-20 10:59] LABS: Alanine Aminotransferase 8 U/L (0-40); Albumin Level 4.1 g/dL (3.5-5.0); Alkaline Phosphatase 57 U/L (39-117); Anion Gap 9 (12-20); Aspartate Amino Transferase 22 U/L (5-37); Bilirubin Total 0.8 mg/dL (0.0-1.0); Blood Urea Nitrogen 16 mg/dL (9-16); Calcium 9.3 mg/dL (8.4-10.2); Carbon Dioxide 28 mmol/L (22-29); Chloride 108 mmol/L (96-108); Cholesterol 136 mg/dL (<200); Estimated Glomerular Filt Rate > 60; Glucose Fasting 142 mg/dL (60-99); HDL Cholesterol 49 mg/dL (>40); LDL Cholesterol Calculated 76 mg/dL (<100); Potassium 4.3 mmol/L (3.3-5.1); Sodium 141 mmol/L (135-145); Total Protein 6.5 g/dL (6.5-8.0); Triglycerides 57 mg/dL (<150)
[2024-07-20 11:14] LABS: Creatinine Urine 66.97 mg/dL; Microalbum/Creatinine Ratio Ur 52.2 ug/mg cr (<30)
== END 2024-07-20 08:29 | disposition home or self-care (01) ==
LOC: HO.HMGCLDS 08:28
PROVIDERS: PCP Internal Medicine; Visit Provider Internal Medicine
DX: E11.9 Type 2 diabetes mellitus without complications (principal); E78.5 Hyperlipidemia, unspecified; D12.8 Benign neoplasm of rectum
CPT/HCPCS: 36415; 80053; 80061; 82043; 82570; 83036; 85025

== ENCOUNTER 2024-07-21 09:48 | Outpatient (AMB) | payer MEDICARE, SELFPAY ==
--- NOTE | 2024-07-21 10:01 | A.OFFPC_ITS ---
Vital Signs 07/21/24 10:02 Height 5 ft 8 in Weight 186 lb BMI 28.3 BP 124/82 Blood Pressure Location Lt brachial Position Sitting Pulse 54 Pulse Source Pulse Oximeter Pulse Oximetry (%) 99 Oxygen Delivery Method Room Air Intake Visit Reasons: 6M F/U Intake Note: Pt is here today for his 6mo. f/u Allergies No Known Allergies Allergy (Verified 01/22/24 09:48) Medication List - Last Reconciled 07/21/24 by Justine Toribio MD lisinopril 10 mg PO DAILY metformin ER 1,000 mg (2 x 500 mg) PO QPM pantoprazole 20 mg PO QAM pravastatin 20 mg PO DAILY Tobacco use date assessed: 07/21/24 Fall risk assessment: No Falls in past year Last assessed Fall Risk: 07/21/24 Dental Screening Dental Screen Date: 07/21/24 Did you have a dental visit in the last 12 months?: No Did you have a dental problem in the last 6 months where you did not have access to dental care?: No Was dental information given to patient?: Patient declined HPI 6M F/U HPI Details Pt presents for f/u HTN, DM2, hyperlipid, stable on meds. PFSH Medical History Shoulder pain, left DM type 2 (diabetes mellitus, type 2) Annual physical exam Proteinuria Essential hypertension Hyperlipidemia LDL goal <100 Overweight (BMI 25.0-29.9) Anal cancer Diabetic eye exam HTN (hypertension) Hyperlipidemia Diabetes Cellulitis Cancer of colon with rectum Surgical History History of esophagogastroduodenoscopy (EGD) Hx of colectomy H/O colonoscopy Family History Father Colon cancer Mother Lung cancer Social History Household Members: Spouse Housing: House Do you presently have visiting nurse or other home services: No Alcohol intake: former Patient Tobacco Use Status: Never used Tobacco e-Cigarette/Vaping Use: Never Used service: No Current occupational status: retired Cognitive needs: No Hearing needs: No Vision needs: Yes Questionnaire PHQ-9 Over the last 2 weeks, how often have you been bothered by any of the following problems? 1. Little interest or pleasure in doing things: not at all 2. Feeling down, depressed, or hopeless: not at all 3. Trouble falling or staying asleep, or sleeping too much: not at all 4. Feeling tired or having little energy: not at all 5. Poor appetite or overeating: not at all 6. Feeling bad about yourself - or that you are a failure or have let yourself or your family down: not at all 7. Trouble concentrating on things, such as reading the newspaper or watching television: not at all 8. Moving or speaking so slowly that other people could have noticed. Or the opposite - being so fidgety or restless that you have been moving around a lot more than usual: not at all 9. Thoughts that you would be better off or of hurting yourself in some way: not at all Total score: 0 Depression Screening Interpretation: Negative Depression Screening Done: Yes 30195 - PHQ-9 Billing: Yes Source: Developed by Drs. Jacob Whitlock, Eden Norris, Deepak Crews and colleagues, with an educational drew from [employer] Thrive Questionnaire Date Thrive assessed: 10/24/21 I am a: Patient What is your living situation today?: I have a steady place to live Within the past 12 months, did the food you bought not last and you didn't have the money to get more?: Never true Within the past 12 months, did you worry whether your food would run out before you got money to buy more?: Never true Do you have trouble paying for medicines?: No Do you have trouble getting transportation to medical appointments?: No Do you have trouble paying your heating and electricity bill?: No Do you have trouble taking care of your child, family member or friend?: No Do you have trouble with day-to-day activities such as bathing, preparing meals, shopping, managing finances, etc.?: No Are you currently unemployed and looking for a job?: No Are you interested in more education?: No Please select the resources that you would like help with: None Currently or been in a relationship where the following occur: No concerns reported THRIVE Score: 0 AUDIT C Alcohol Use Questionnaire (AUDIT-C) 1. How often do you have a drink containing alcohol?: Never 3. How often do you have six or more drinks on one occasion?: Never Total Score: 0 ASHLEY-7 AMB Questionnaire ASHLEY-7 Date ASHLEY - 7 assessed: 10/24/21 Feeling nervous, anxious, or on edge: 0 = Not at all Not being able to stop or control worryin = Not at all Worrying too much about different things: 0 = Not at all Trouble relaxin = Not at all Being so restless that it is hard to sit still: 0 = Not at all Becoming easily annoyed or irritable: 0 = Not at all Feeling afraid as if something awful might happen: 0 = Not at all Total ASHLEY-7 score (0-4 normal; 5-9 mild; 10-14 moderate; 15-21 severe): 0 Source: Developed by Drs. Jacob Whitlock, Eden Norris, Deepak Crews and colleagues, with an educational drew from [employer]. Review of Systems Const All systems reviewed & are unremarkable except as noted in HPI and below Eyes Reports no additional complaints ENT Reports no additional complaints Card Reports no additional complaints Resp Reports no additional complaints GI Reports no additional complaints Reports no additional complaints Physical exam (Primary Care) Vital Signs: Last Vital Signs Pulse 54 07/21/24 10:02 BP 124/82 07/21/24 10:02 Pulse Ox 99 07/21/24 10:02 Oxygen Delivery Method Room Air 07/21/24 10:02 BMI result Body Mass Index 28.3 Tobacco/Smoking Status: Tobacco use Status Tobacco use date assessed 07/21/24 07/21/24 10:04 Patient Tobacco Use Status Never used Tobacco 07/21/24 10:04 e-Cigarette/Vaping Use Never Used 07/21/24 10:04 PHQ-9: PHQ-9 Score PHQ-9: Total score 0 07/21/24 10:04 Depression Screening Interpretation: Negative Thrive Assessment: Date of Thrive Assessment Date Thrive assessed 10/24/21 07/21/24 10:04 Currently or been in a relationship where the following occur: No concerns reported Const General: no acute distress HENMT Throat: Yes posterior oropharynx normal Neck Neck: Yes supple Resp Effort & Inspection: normal respiratory effort Auscultation: clear to auscultation bilaterally Cardio Rhythm: regular rhythm Heart sounds: S1 normal heart sound present and S2 normal heart sound present GI Inspection: Yes normal to inspection Palpation (GI): Soft to palpation Percussion: Yes normal to percussion Auscultation: normal bowel sounds Coding Level of Care Code Est Pt Level 4 (96996) Diagnoses Essential hypertension I10 DM type 2 (diabetes mellitus, type 2) E11.9 Hyperlipidemia LDL goal <100 E78.5 Additional Codes PHQ-9 - 72550 - PHQ-9 Billing: Yes ([id number]) Assessment & Plan Assessment & Plan (1) Essential hypertension: Code(s): I10 - Essential (primary) hypertension Category: Medical Plan: Increase lisinopril to 20 mg check BMP in 1 week and follow-up in 1 month (2) DM type 2 (diabetes mellitus, type 2): Code(s): E11.9 - Type 2 diabetes mellitus without complications Category: Medical Plan: A1c is 6.2, ADA diet increase exercise weight loss discussed with the patient, continue metformin (3) Hyperlipidemia LDL goal <100: Code(s): E78.5 - Hyperlipidemia, unspecified Category: Medical Plan: cont statin Orders: Orders Basic Metabolic Panel 1 Week I10 - Essential (primary) hypertension Medications: New lisinopril 20 mg PO DAILY 90 tabs 3RF Discontinued lisinopril Discontinued Reason: Doctor's Order 10 mg PO DAILY 90 tabs 1RF E11.29 - Type 2 diabetes mellitus with other diabetic kidney complication
[2024-07-21 10:02] VITALS: BP 124/82; PULSE 54; O2SAT 99; BMI 28.3
== END 2024-07-21 10:40 | disposition home or self-care (01) ==
PROVIDERS: PCP Internal Medicine; Visit Provider Internal Medicine
DX: I10 Essential (primary) hypertension (principal); E11.9 Type 2 diabetes mellitus without complications; E78.5 Hyperlipidemia, unspecified

== ENCOUNTER → 2024-07-21 09:48 | Outpatient (BNVA) | payer MEDICARE, SELFPAY | PROVIDERS: PCP Internal Medicine; Visit Provider Internal Medicine | DX: I10 Essential (primary) hypertension (principal); E11.9 Type 2 diabetes mellitus without complications; E78.5 Hyperlipidemia, unspecified | CPT/HCPCS: 96127; 99212 ==

== ENCOUNTER 2024-08-22 08:10 | Outpatient (REF) | payer MEDICARE, SELFPAY ==
[2024-08-22 11:44] LABS: Anion Gap 13 (12-20); Blood Urea Nitrogen 22 mg/dL (9-16); Calcium 9.4 mg/dL (8.4-10.2); Carbon Dioxide 26 mmol/L (22-29); Chloride 111 mmol/L (96-108); Estimated Glomerular Filt Rate > 60; Glucose Random 137 mg/dL (60-115); Potassium 4.6 mmol/L (3.3-5.1); Sodium 145 mmol/L (135-145)
== END 2024-08-22 08:11 | disposition home or self-care (01) ==
LOC: HO.HMGCLDS 08:10
PROVIDERS: PCP Internal Medicine; Visit Provider Internal Medicine
DX: I10 Essential (primary) hypertension (principal)
CPT/HCPCS: 36415; 80048

== ENCOUNTER 2024-08-24 09:03 | Outpatient (AMB) | payer MEDICARE, SELFPAY ==
[2024-08-24 09:09] VITALS: BP 114/70; PULSE 46; O2SAT 96; BMI 28.1
--- NOTE | 2024-08-24 09:09 | A.OFFPC_ITS ---
Vital Signs 08/24/24 09:09 08/24/24 09:49 Height 5 ft 8 in Weight 185 lb BMI 28.1 BP 114/70 138/81 Blood Pressure Location Lt brachial Rt brachial Position Sitting Sitting Pulse 46 L Pulse Source Pulse Oximeter Pulse Oximetry (%) 96 Oxygen Delivery Method Room Air Intake Visit Reasons: 1 month follow up Intake Note: Pt is here today for 1 month follow up visit on BP. Allergies No Known Allergies Allergy (Verified 08/24/24 09:09) Medication List - Last Reconciled 08/24/24 by Justine Toribio MD lisinopril 20 mg PO DAILY metformin ER 1,000 mg (2 x 500 mg) PO QPM pantoprazole 20 mg PO QAM pravastatin 20 mg PO DAILY Tobacco use date assessed: 08/24/24 Fall risk assessment: No Falls in past year Last assessed Fall Risk: 08/24/24 Dental Screening Dental Screen Date: 08/24/24 Did you have a dental visit in the last 12 months?: Yes Did you have a dental problem in the last 6 months where you did not have access to dental care?: No Was dental information given to patient?: Patient has dentist HPI 1 month follow up HPI Details Patient presents for the follow-up on hypertension. He has been tolerating 20 mg of lisinopril exercising regularly following low-sodium diet. Type 2 diabetes is stable on metformin [facility] Medical History Shoulder pain, left DM type 2 (diabetes mellitus, type 2) Annual physical exam Proteinuria Essential hypertension Hyperlipidemia LDL goal <100 Overweight (BMI 25.0-29.9) Anal cancer Diabetic eye exam HTN (hypertension) Hyperlipidemia Diabetes Cellulitis Cancer of colon with rectum Surgical History History of esophagogastroduodenoscopy (EGD) Hx of colectomy H/O colonoscopy Family History Father Colon cancer Mother Lung cancer Social History Household Members: Spouse Housing: House Do you presently have visiting nurse or other home services: No Alcohol intake: former Patient Tobacco Use Status: Never used Tobacco e-Cigarette/Vaping Use: Never Used service: No Current occupational status: retired Cognitive needs: No Hearing needs: No Vision needs: Yes Questionnaire PHQ-9 Over the last 2 weeks, how often have you been bothered by any of the following problems? 1. Little interest or pleasure in doing things: not at all 2. Feeling down, depressed, or hopeless: not at all 3. Trouble falling or staying asleep, or sleeping too much: not at all 4. Feeling tired or having little energy: not at all 5. Poor appetite or overeating: not at all 6. Feeling bad about yourself - or that you are a failure or have let yourself or your family down: not at all 7. Trouble concentrating on things, such as reading the newspaper or watching television: not at all 8. Moving or speaking so slowly that other people could have noticed. Or the opposite - being so fidgety or restless that you have been moving around a lot more than usual: not at all 9. Thoughts that you would be better off or of hurting yourself in some way: not at all Total score: 0 Depression Screening Interpretation: Negative Depression Screening Done: Yes 77698 - PHQ-9 Billing: Yes Source: Developed by Drs. Jacob Whitlock, Eden Norris, Deepak Crews and colleagues, with an educational drew from [employer]. Thrive Questionnaire Date Thrive assessed: 08/24/24 I am a: Patient What is your living situation today?: I have a steady place to live Within the past 12 months, did the food you bought not last and you didn't have the money to get more?: Never true Within the past 12 months, did you worry whether your food would run out before you got money to buy more?: Never true Do you have trouble paying for medicines?: No Do you have trouble getting transportation to medical appointments?: No Do you have trouble paying your heating and electricity bill?: No Do you have trouble taking care of your child, family member or friend?: No Do you have trouble with day-to-day activities such as bathing, preparing meals, shopping, managing finances, etc.?: No Are you currently unemployed and looking for a job?: No Are you interested in more education?: No Please select the resources that you would like help with: None Currently or been in a relationship where the following occur: No concerns reported THRIVE Score: 0 AUDIT C Alcohol Use Questionnaire (AUDIT-C) 1. How often do you have a drink containing alcohol?: Never 3. How often do you have six or more drinks on one occasion?: Never Total Score: 0 ASHLEY-7 AMB Questionnaire ASHLEY-7 Date ASHLEY - 7 assessed: 08/24/24 Feeling nervous, anxious, or on edge: 0 = Not at all Not being able to stop or control worryin = Not at all Worrying too much about different things: 0 = Not at all Trouble relaxin = Not at all Being so restless that it is hard to sit still: 0 = Not at all Becoming easily annoyed or irritable: 0 = Not at all Feeling afraid as if something awful might happen: 0 = Not at all Total ASHLEY-7 score (0-4 normal; 5-9 mild; 10-14 moderate; 15-21 severe): 0 Source: Developed by Drs. Jacob Whitlock, Eden Norris, Deepak Crews and colleagues, with an educational drew from [employer]. ASHLEY-7 Assessment Billing ASHLEY-7 Assessment Tool: ASHLEY-7 Assessment 41386 Review of Systems Const All systems reviewed & are unremarkable except as noted in HPI and below ENT Reports no additional complaints Card Reports no additional complaints Resp Reports no additional complaints GI Reports no additional complaints Physical exam (Primary Care) Vital Signs: Last Vital Signs Pulse 46 L 08/24/24 09:09 BP 114/70 08/24/24 09:09 Pulse Ox 96 08/24/24 09:09 Oxygen Delivery Method Room Air 08/24/24 09:09 BMI result Body Mass Index 28.1 Tobacco/Smoking Status: Tobacco use Status Tobacco use date assessed 08/24/24 08/24/24 09:10 Patient Tobacco Use Status Never used Tobacco 08/24/24 09:10 e-Cigarette/Vaping Use Never Used 08/24/24 09:10 PHQ-9: PHQ-9 Score PHQ-9: Total score 0 08/24/24 09:15 Depression Screening Interpretation: Negative Thrive Assessment: Date of Thrive Assessment Date Thrive assessed 08/24/24 08/24/24 09:15 Currently or been in a relationship where the following occur: No concerns reported Const General: no acute distress HENMT Head: Yes normal to inspection Mouth: Normal oral and palatal mucosa present Neck Neck: Yes supple Resp Effort & Inspection: normal respiratory effort Auscultation: clear to auscultation bilaterally Cardio Rhythm: regular rhythm Heart sounds: S1 normal heart sound present and S2 normal heart sound present Coding Level of Care Code Est Pt Level 3 (17623) Diagnoses Essential hypertension I10 DM type 2 (diabetes mellitus, type 2) E11.9 Additional Codes ASHLEY-7 Assessment Billing - ASHLEY-7 Assessment Tool: ASHLEY-7 Assessment 06792 ([id number]) PHQ-9 - 82597 - PHQ-9 Billing: Yes ([id number]) Assessment & Plan Assessment & Plan (1) Essential hypertension: Code(s): I10 - Essential (primary) hypertension Category: Medical Plan: Increase lisinopril to 30 mg a day check basic metabolic panel in 2 weeks follow-up in 1 month 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
[2024-08-24 09:49] VITALS: BP 138/81
== END 2024-08-24 09:51 | disposition home or self-care (01) ==
PROVIDERS: PCP Internal Medicine; Visit Provider Internal Medicine
DX: I10 Essential (primary) hypertension (principal); E11.9 Type 2 diabetes mellitus without complications

== ENCOUNTER → 2024-08-24 09:03 | Outpatient (BNVA) | payer MEDICARE, SELFPAY | PROVIDERS: PCP Internal Medicine; Visit Provider Internal Medicine | DX: I10 Essential (primary) hypertension (principal); E11.9 Type 2 diabetes mellitus without complications | CPT/HCPCS: 96127; 99212 ==

== ENCOUNTER 2024-09-21 06:35 | Outpatient (REF) | payer MEDICARE, SELFPAY ==
[2024-09-21 10:45] LABS: Anion Gap 9 (12-20); Blood Urea Nitrogen 17 mg/dL (9-16); Calcium 8.8 mg/dL (8.4-10.2); Carbon Dioxide 28 mmol/L (22-29); Chloride 108 mmol/L (96-108); Estimated Glomerular Filt Rate > 60; Glucose Random 144 mg/dL (60-115); Potassium 4.3 mmol/L (3.3-5.1); Sodium 141 mmol/L (135-145)
== END 2024-09-21 06:36 | disposition home or self-care (01) ==
LOC: HO.HMGCLDS 06:35
PROVIDERS: PCP Internal Medicine; Visit Provider Internal Medicine
DX: I10 Essential (primary) hypertension (principal)
CPT/HCPCS: 36415; 80048

== ENCOUNTER 2024-09-22 10:37 | Outpatient (AMB) | payer MEDICARE, SELFPAY ==
[2024-09-22 10:57] VITALS: BP 139/80; PULSE 52; RESP 18; TEMP 36.8; O2SAT 98; BMI 28.9
--- NOTE | 2024-09-22 10:57 | A.OFFPC_ITS ---
Vital Signs 09/22/24 10:57 Height 5 ft 8 in Weight 190 lb BMI 28.9 BP 139/80 Blood Pressure Location Rt brachial Position Sitting Respiration 18 Pulse 52 Pulse Source Pulse Oximeter Temp 98.3 F Temp Source Oral Pulse Oximetry (%) 98 Oxygen Delivery Method Room Air Intake Visit Reasons: 1 month follow up Intake Note: Pt is here today for 1 month follow up visit on HTN. Allergies No Known Allergies Allergy (Verified 09/22/24 10:59) Medication List - Last Reconciled 09/22/24 by Justine Toribio MD amlodipine 2.5 mg PO DAILY dapagliflozin propanediol (Farxiga) 5 mg PO DAILY lisinopril 30 mg PO DAILY metformin ER 1,000 mg (2 x 500 mg) PO QPM pantoprazole 20 mg PO QAM pravastatin 20 mg PO DAILY Tobacco use date assessed: 09/22/24 Dental Screening Dental Screen Date: 08/24/24 HPI 1 month follow up HPI Details Patient presents for the follow-up on hypertension after increasing lisinopril to 30 mg a day. He denies side effects chest pain shortness of breath headaches. Patient reports intermittent diarrhea and increased gas since he increase metformin to 1000 mg a day. Patient had colonoscopy and EGD last year. He denies hematochezia melena or weight loss. [facility], [facility] Medical History Shoulder pain, left DM type 2 (diabetes mellitus, type 2) Annual physical exam Proteinuria Essential hypertension Hyperlipidemia LDL goal <100 Overweight (BMI 25.0-29.9) Anal cancer Diabetic eye exam HTN (hypertension) Hyperlipidemia Diabetes Cellulitis Cancer of colon with rectum Surgical History (Updated 09/22/24 @ 11:49 by Justine Toribio MD) History of esophagogastroduodenoscopy (EGD) Hx of colectomy H/O colonoscopy Family History Father Colon cancer Mother Lung cancer Social History Household Members: Spouse Housing: House Do you presently have visiting nurse or other home services: No Alcohol intake: former Patient Tobacco Use Status: Never used Tobacco e-Cigarette/Vaping Use: Never Used service: No Current occupational status: retired Cognitive needs: No Hearing needs: No Vision needs: Yes Questionnaire Thrive Questionnaire Date Thrive assessed: 08/24/24 I am a: Patient What is your living situation today?: I have a steady place to live Within the past 12 months, did the food you bought not last and you didn't have the money to get more?: Never true Within the past 12 months, did you worry whether your food would run out before you got money to buy more?: Never true Do you have trouble paying for medicines?: No Do you have trouble getting transportation to medical appointments?: No Do you have trouble paying your heating and electricity bill?: No Do you have trouble taking care of your child, family member or friend?: No Do you have trouble with day-to-day activities such as bathing, preparing meals, shopping, managing finances, etc.?: No Are you currently unemployed and looking for a job?: No Are you interested in more education?: No Please select the resources that you would like help with: None Currently or been in a relationship where the following occur: No concerns reported THRIVE Score: 0 ASHLEY-7 AMB Questionnaire AHSLEY-7 Date ASHLEY - 7 assessed: 08/24/24 Source: Developed by Drs. Jacob Whitlock, Eden Norris, Deepak Crews and colleagues, with an educational drew from [employer]. Review of Systems Const All systems reviewed & are unremarkable except as noted in HPI and below Eyes Reports no additional complaints ENT Reports no additional complaints Card Reports no additional complaints Resp Reports no additional complaints GI Reports no additional complaints Reports no additional complaints Physical exam (Primary Care) Vital Signs: Last Vital Signs Temp 98.3 F 09/22/24 10:57 Pulse 52 09/22/24 10:57 Resp 18 09/22/24 10:57 Pulse Ox 98 09/22/24 10:57 Oxygen Delivery Method Room Air 09/22/24 10:57 BMI result Body Mass Index 28.9 Tobacco/Smoking Status: Tobacco use Status Tobacco use date assessed 09/22/24 09/22/24 11:00 Patient Tobacco Use Status Never used Tobacco 09/22/24 10:57 e-Cigarette/Vaping Use Never Used 09/22/24 10:57 Thrive Assessment: Date of Thrive Assessment Date Thrive assessed 08/24/24 09/22/24 10:57 Currently or been in a relationship where the following occur: No concerns reported Const General: no acute distress HENMT Face and sinus: Yes normal facial exam Neck Neck: Yes supple Resp Effort & Inspection: normal respiratory effort Auscultation: clear to auscultation bilaterally Cardio Rhythm: regular rhythm Heart sounds: S1 normal heart sound present and S2 normal heart sound present GI Inspection: Yes normal to inspection Palpation (GI): Soft to palpation Percussion: Yes normal to percussion Auscultation: normal bowel sounds Coding Level of Care Code Est Pt Level 4 (83098) Diagnoses DM type 2 (diabetes mellitus, type 2) E11.9 Essential hypertension I10 Hyperlipidemia LDL goal <100 E78.5 Assessment & Plan Assessment & Plan (1) DM type 2 (diabetes mellitus, type 2): Comment: 1000 MG Code(s): E11.9 - Type 2 diabetes mellitus without complications Category: Medical Plan: Patient will decrease metformin to 500 mg and Farxiga 5 mg daily will be started. ADA diet increase physical activity discussed with the patient. He was advised to try probiotics and fiber supplement for intermittent constipation (2) Essential hypertension: Code(s): I10 - Essential (primary) hypertension Category: Medical Plan: Add amlodipine 2.5 mg to 30 mg of lisinopril, low-sodium diet increase exercise weight loss discussed with the patient follow-up in 1 month (3) Hyperlipidemia LDL goal <100: Code(s): E78.5 - Hyperlipidemia, unspecified Category: Medical Plan: Continue statin Medications: New amlodipine 2.5 mg PO DAILY 90 tabs 0RF dapagliflozin propanediol (Farxiga) 5 mg PO DAILY 90 tabs 0RF Changed From metformin ER 1,000 mg (2 x 500 mg) PO QPM 180 tabs 3RF E11.29 - Type 2 diabetes mellitus with other diabetic kidney complication To metformin ER 500 mg PO QPM 90 tabs 3RF E11.29 - Type 2 diabetes mellitus with other diabetic kidney complication Refilled metformin ER 1,000 mg (2 x 500 mg) PO QPM 180 tabs 3RF E11.29 - Type 2 diabetes mellitus with other diabetic kidney complication pravastatin 20 mg PO DAILY 90 tabs 3RF
== END 2024-09-22 11:43 | disposition home or self-care (01) ==
PROVIDERS: PCP Internal Medicine; Visit Provider Internal Medicine
DX: E11.9 Type 2 diabetes mellitus without complications (principal); I10 Essential (primary) hypertension; E78.5 Hyperlipidemia, unspecified

== ENCOUNTER → 2024-09-22 10:37 | Outpatient (BNVA) | payer MEDICARE, SELFPAY | PROVIDERS: PCP Internal Medicine; Visit Provider Internal Medicine | DX: E11.9 Type 2 diabetes mellitus without complications (principal); E78.5 Hyperlipidemia, unspecified; I10 Essential (primary) hypertension | CPT/HCPCS: 99212 ==

== ENCOUNTER 2024-10-21 10:33 | Outpatient (AMB) | payer MEDICARE, SELFPAY ==
[2024-10-21 10:42] VITALS: BP 134/64; PULSE 51; RESP 18; TEMP 36.9; O2SAT 97; BMI 27.5
--- NOTE | 2024-10-21 10:42 | A.OFFPC_ITS ---
Vital Signs 10/21/24 10:42 Height 5 ft 8 in Weight 181 lb BMI 27.5 BP 134/64 Blood Pressure Location Lt brachial Position Sitting Respiration 18 Pulse 51 Pulse Source Pulse Oximeter Temp 98.5 F Temp Source Oral Pulse Oximetry (%) 97 Oxygen Delivery Method Room Air Intake Visit Reasons: 1 month follow up Intake Note: Pt is here today for 1 month follow up visit. Allergies No Known Allergies Allergy (Verified 10/21/24 10:42) Medication List - Last Reconciled 10/21/24 by Justine Toribio MD amlodipine 5 mg PO DAILY lisinopril 30 mg PO DAILY metformin ER 1,000 mg (2 x 500 mg) PO QPM pravastatin 20 mg PO DAILY Tobacco use date assessed: 10/21/24 Last assessed Fall Risk: 10/21/24 Dental Screening Dental Screen Date: 08/24/24 HPI 1 month follow up HPI Details Pt presents for follow-up of hypertension and type 2 diabetes. Has been tolerating medications well trying to increase physical activity. [facility] Medical History Shoulder pain, left DM type 2 (diabetes mellitus, type 2) Annual physical exam Proteinuria Essential hypertension Hyperlipidemia LDL goal <100 Overweight (BMI 25.0-29.9) Anal cancer Diabetic eye exam HTN (hypertension) Hyperlipidemia Diabetes Cellulitis Cancer of colon with rectum Surgical History (Updated 09/22/24 @ 11:49 by Justine Toribio MD) History of esophagogastroduodenoscopy (EGD) Hx of colectomy H/O colonoscopy Family History Father Colon cancer Mother Lung cancer Social History Household Members: Spouse Housing: House Do you presently have visiting nurse or other home services: No Alcohol intake: former Patient Tobacco Use Status: Never used Tobacco e-Cigarette/Vaping Use: Never Used service: No Current occupational status: retired Cognitive needs: No Hearing needs: No Vision needs: Yes Questionnaire Thrive Questionnaire Date Thrive assessed: 08/21/24 I am a: Patient What is your living situation today?: I have a steady place to live Within the past 12 months, did the food you bought not last and you didn't have the money to get more?: Never true Within the past 12 months, did you worry whether your food would run out before you got money to buy more?: Never true Do you have trouble paying for medicines?: No Do you have trouble getting transportation to medical appointments?: No Do you have trouble paying your heating and electricity bill?: No Do you have trouble taking care of your child, family member or friend?: No Do you have trouble with day-to-day activities such as bathing, preparing meals, shopping, managing finances, etc.?: No Are you currently unemployed and looking for a job?: No Are you interested in more education?: No Please select the resources that you would like help with: None Currently or been in a relationship where the following occur: No concerns reported THRIVE Score: 0 ASHLEY-7 AMB Questionnaire ASHLEY-7 Date ASHLEY - 7 assessed: 08/24/24 Source: Developed by Drs. Jacob Whitlock, Eden Norris, Deepak Crews and colleagues, with an educational drew from [employer]. Review of Systems Const All systems reviewed & are unremarkable except as noted in HPI and below ENT Reports no additional complaints Card Reports no additional complaints Resp Reports no additional complaints GI Reports no additional complaints Reports no additional complaints Physical exam (Primary Care) Vital Signs: Last Vital Signs Temp 98.5 F 10/21/24 10:42 Pulse 51 10/21/24 10:42 Resp 18 10/21/24 10:42 BP 134/64 10/21/24 10:42 Pulse Ox 97 10/21/24 10:42 Oxygen Delivery Method Room Air 10/21/24 10:42 BMI result Body Mass Index 27.5 Tobacco/Smoking Status: Tobacco use Status Tobacco use date assessed 10/21/24 10/21/24 10:43 Patient Tobacco Use Status Never used Tobacco 10/21/24 10:43 e-Cigarette/Vaping Use Never Used 10/21/24 10:43 Thrive Assessment: Date of Thrive Assessment Date Thrive assessed 08/21/24 10/21/24 10:43 Currently or been in a relationship where the following occur: No concerns reported Const General: no acute distress HENMT Face and sinus: Yes normal facial exam Eyes General: appearance normal, both eyes and all related structures Neck Neck: Yes supple Resp Effort & Inspection: normal respiratory effort Auscultation: clear to auscultation bilaterally Cardio Rhythm: regular rhythm Heart sounds: S1 normal heart sound present and S2 normal heart sound present Coding Level of Care Code Est Pt Level 4 (07610) Diagnoses Hyperlipidemia LDL goal <100 E78.5 Essential hypertension I10 DM type 2 (diabetes mellitus, type 2) E11.9 Assessment & Plan Assessment & Plan (1) Hyperlipidemia LDL goal <100: Code(s): E78.5 - Hyperlipidemia, unspecified Category: Medical Plan: Continue pravastatin (2) Essential hypertension: Code(s): I10 - Essential (primary) hypertension Category: Medical Plan: Increase amlodipine to 5 mg a day continue lisinopril follow-up in 6 weeks with a fasting labs before (3) DM type 2 (diabetes mellitus, type 2): Comment: Patient could not afford Powered Code(s): E11.9 - Type 2 diabetes mellitus without complications Category: Medical Plan: ADA diet regular exercise discussed with the patient, continue metformin Orders: Orders Lipid Panel 6 Weeks E11.9 - Type 2 diabetes mellitus without complications, E78.5 - Hyperlipidemia, unspecified, I10 - Essential (primary) hypertension Microalbumin, Random (w Creat) 6 Weeks E11.9 - Type 2 diabetes mellitus without complications, E78.5 - Hyperlipidemia, unspecified, I10 - Essential (primary) hypertension Hemoglobin A1c 6 Weeks E11.9 - Type 2 diabetes mellitus without complications, E78.5 - Hyperlipidemia, unspecified, I10 - Essential (primary) hypertension Comprehensive [place]. Panel Fast 6 Weeks E11.9 - Type 2 diabetes mellitus without complications, E78.5 - Hyperlipidemia, unspecified, I10 - Essential (primary) hypertension Complete Blood Count Auto Diff 6 Weeks E11.9 - Type 2 diabetes mellitus without complications, E78.5 - Hyperlipidemia, unspecified, I10 - Essential (primary) hypertension Medications: New amlodipine 5 mg PO DAILY 90 tabs 0RF Changed From metformin ER 500 mg PO QPM 90 tabs 3RF E11.29 - Type 2 diabetes mellitus with other diabetic kidney complication To metformin ER 1,000 mg (2 x 500 mg) PO QPM 180 tabs 3RF E11.29 - Type 2 diabetes mellitus with other diabetic kidney complication Refilled lisinopril 30 mg PO DAILY 90 tabs 3RF Discontinued amlodipine Discontinued Reason: Doctor's Order 2.5 mg PO DAILY 90 tabs 0RF pantoprazole Discontinued Reason: Doctor's Order 20 mg PO QAM 30 tabs 6RF dapagliflozin propanediol (Farxiga) Discontinued Reason: Doctor's Order 5 mg PO DAILY 90 tabs 0RF
== END 2024-10-21 11:52 | disposition home or self-care (01) ==
PROVIDERS: PCP Internal Medicine; Visit Provider Internal Medicine
DX: E78.5 Hyperlipidemia, unspecified (principal); I10 Essential (primary) hypertension; E11.9 Type 2 diabetes mellitus without complications

== ENCOUNTER → 2024-10-21 10:33 | Outpatient (BNVA) | payer MEDICARE, SELFPAY | PROVIDERS: PCP Internal Medicine; Visit Provider Internal Medicine | DX: E11.29 Type 2 diabetes mellitus with other diabetic kidney complication (principal); E78.5 Hyperlipidemia, unspecified; I10 Essential (primary) hypertension | CPT/HCPCS: 99212 ==

== ENCOUNTER 2024-11-26 07:12 | Outpatient (REF) | payer MEDICARE, SELFPAY ==
[2024-11-26 10:07] LABS: MANUAL DIFF FLAG NO
[2024-11-26 10:20] LABS: Basophils Absolute Auto 0.1 X10*3/uL (0.0-0.2); Basophils Percent Auto 1.2 % (0-2); Eosinophils Absolute Auto 0.4 X10*3/uL (0.0-0.4); Eosinophils Percent Auto 5.9 % (0-4); Hematocrit 39.6 % (42.0-52.0); Hemoglobin 13.3 g/dl (14.0-18.0); Imm Gran Abs Auto 0.04 X10*3/uL (0.00-0.03); Imm Gran Pct Auto 0.7 % (0.0-0.4); Lymphocytes Absolute Auto 1.4 X10*3/uL (1.2-4.9); Lymphocytes Percent Auto 24.1 % (20-40); Mean Corpuscular HGB Conc 33.6 g/dl (31.0-36.0); Mean Corpuscular Hemoglobin 29.6 pg (27.0-33.0); Mean Corpuscular Volume 88.2 fL (80.0-98.0); Mean Platelet Volume 10.5 fL (9.4-12.4); Monocytes Absolute Auto 0.6 X10*3/uL (0.1-1.2); Monocytes Percent Auto 10.8 % (2-11); Neutrophils Absolute Auto 3.4 x10*3/uL (2.0-8.3); Neutrophils Percent Auto 57.3 % (45-73); Platelet Count 153 X10*3/uL (160-400); Red Blood Count 4.49 X10*6/uL (4.60-5.80); Red Cell Distribution Width 13.8 % (11.0-16.0); White Blood Count 5.9 X10*3/uL (4.8-10.8)
[2024-11-26 10:26] LABS: Alanine Aminotransferase 11 U/L (0-40); Alkaline Phosphatase 51 U/L (39-117); Anion Gap 12 (12-20); Aspartate Amino Transferase 23 U/L (5-37); Bilirubin Total 0.8 mg/dL (0.0-1.0); Blood Urea Nitrogen 21 mg/dL (9-16); Calcium 9.1 mg/dL (8.4-10.2); Carbon Dioxide 25 mmol/L (22-29); Chloride 111 mmol/L (96-108); Cholesterol 135 mg/dL (<200); Estimated Average Glucose 134 mg/dL; Estimated Glomerular Filt Rate > 60; Glucose Fasting 146 mg/dL (60-99); HDL Cholesterol 51 mg/dL (>40); Hemoglobin A1C 160.9234 umol/L; Hemoglobin A1c % 6.3 % (<6.0); LDL Cholesterol Calculated 73 mg/dL (<100); Potassium 4.5 mmol/L (3.3-5.1); Sodium 143 mmol/L (135-145); Total Hemoglobin (HGBA1C) 3513.3419 umol/L; Total Protein 6.5 g/dL (6.5-8.0); Triglycerides 59 mg/dL (<150)
[2024-11-26 11:23] LABS: Creatinine Urine 163.03 mg/dL; Microalbum/Creatinine Ratio Ur 27.6 ug/mg cr (<30)
== END 2024-11-26 07:13 | disposition home or self-care (01) ==
LOC: HO.HMGCLDS 07:12
PROVIDERS: PCP Internal Medicine; Visit Provider Internal Medicine
DX: I10 Essential (primary) hypertension (principal); E78.5 Hyperlipidemia, unspecified; E11.9 Type 2 diabetes mellitus without complications
CPT/HCPCS: 36415; 80053; 80061; 82043; 82570; 83036; 85025

== ENCOUNTER 2024-11-27 09:11 | Outpatient (AMB) | payer MEDICARE, SELFPAY ==
--- NOTE | 2024-11-27 09:16 | A.OFFPC_ITS ---
Vital Signs 11/27/24 09:17 Height 5 ft 8 in Weight 190 lb BMI 28.9 BP 120/74 Blood Pressure Location Lt brachial Position Sitting Respiration 15 Pulse 49 L Pulse Source Pulse Oximeter Temp 97.8 F Temp Source Oral Pulse Oximetry (%) 97 Oxygen Delivery Method Room Air Intake Visit Reasons: 6 weeks f/up Allergies No Known Allergies Allergy (Verified 10/21/24 10:42) Medication List - Last Reconciled 11/27/24 by Justine Toribio MD amlodipine 5 mg PO DAILY ciprofloxacin HCl 0.3% put 1-2 drps in affected eye(s) every 2hr up to 8 times/day x2days; then 4 times/day x5days ophthalmic (eye) lisinopril 30 mg PO DAILY metformin ER 1,000 mg (2 x 500 mg) PO QPM pravastatin 20 mg PO DAILY Tobacco use date assessed: 11/27/24 Fall risk assessment: No Falls in past year Last assessed Fall Risk: 11/27/24 Dental Screening Dental Screen Date: 11/27/24 Did you have a dental visit in the last 12 months?: No Did you have a dental problem in the last 6 months where you did not have access to dental care?: No Was dental information given to patient?: Patient has dentist HPI 6 weeks f/up HPI Details Patient presents for a follow-up. Hypertension hyperlipidemia type 2 diabetes controlled on current medications. Patient complains of right ear irritation after the piece of dirt fall into his right eye yesterday he denies change in vision but reports increase tearing. [facility] Medical History Shoulder pain, left DM type 2 (diabetes mellitus, type 2) Annual physical exam Proteinuria Essential hypertension Hyperlipidemia LDL goal <100 Overweight (BMI 25.0-29.9) Anal cancer Diabetic eye exam HTN (hypertension) Hyperlipidemia Diabetes Cellulitis Cancer of colon with rectum Surgical History History of esophagogastroduodenoscopy (EGD) Hx of colectomy H/O colonoscopy Family History Father Colon cancer Mother Lung cancer Social History Household Members: Spouse Housing: House Do you presently have visiting nurse or other home services: No Alcohol intake: former Patient Tobacco Use Status: Never used Tobacco e-Cigarette/Vaping Use: Never Used service: No Current occupational status: retired Cognitive needs: No Hearing needs: No Vision needs: Yes Questionnaire Thrive Questionnaire Date Thrive assessed: 08/21/24 I am a: Patient What is your living situation today?: I have a steady place to live Within the past 12 months, did the food you bought not last and you didn't have the money to get more?: Never true Within the past 12 months, did you worry whether your food would run out before you got money to buy more?: Never true Do you have trouble paying for medicines?: No Do you have trouble getting transportation to medical appointments?: No Do you have trouble paying your heating and electricity bill?: No Do you have trouble taking care of your child, family member or friend?: No Do you have trouble with day-to-day activities such as bathing, preparing meals, shopping, managing finances, etc.?: No Are you currently unemployed and looking for a job?: No Are you interested in more education?: No Please select the resources that you would like help with: None Currently or been in a relationship where the following occur: No concerns reported THRIVE Score: 0 ASHLEY-7 AMB Questionnaire ASHLEY-7 Date ASHLEY - 7 assessed: 08/24/24 Source: Developed by Drs. Jacob Whitlock, Eden Norris, Deepak Crews and colleagues, with an educational drew from [employer]. Review of Systems Const All systems reviewed & are unremarkable except as noted in HPI and below Eyes Reports no additional complaints ENT Reports no additional complaints Card Reports no additional complaints Resp Reports no additional complaints Physical exam (Primary Care) Vital Signs: Last Vital Signs Temp 97.8 F 11/27/24 09:17 Pulse 49 L 11/27/24 09:17 Resp 15 11/27/24 09:17 BP 120/74 11/27/24 09:17 Pulse Ox 97 11/27/24 09:17 Oxygen Delivery Method Room Air 11/27/24 09:17 BMI result Body Mass Index 28.9 Tobacco/Smoking Status: Tobacco use Status Tobacco use date assessed 11/27/24 11/27/24 09:20 Patient Tobacco Use Status Never used Tobacco 11/27/24 09:20 e-Cigarette/Vaping Use Never Used 11/27/24 09:20 Thrive Assessment: Date of Thrive Assessment Date Thrive assessed 08/21/24 11/27/24 09:20 Currently or been in a relationship where the following occur: No concerns reported Const General: no acute distress HENMT Head: Yes normal to inspection Ears: hearing grossly normal bilaterally Face and sinus: Yes normal facial exam Eyes Conjunctivae: conjunctival abnormal right (Injected conjunctiva no discharge) Resp Effort & Inspection: normal respiratory effort Auscultation: clear to auscultation bilaterally Cardio Rhythm: regular rhythm Heart sounds: S1 normal heart sound present and S2 normal heart sound present GI Inspection: Yes normal to inspection Palpation (GI): Soft to palpation Immunizations pneumoc 20-[place] conj-dip cr(PF) 0.5 mL IM syringe Performing Provider: Justine Toribio MD Performing Location: [facility] [place] [facility] Administered by: Jessica Holloway CMA on 11/27/24 09:39 Dose Route Admin Location Dispensed Lot Number Expiration Date NDC [employer] 0.5 mL IM Left Deltoid 0.5 mL [id number] 02/15/26 [id number] [employer] VIS Given Date VIS Provided VIS Publication Date 11/27/24 Single Vaccine 21 Eligibility Eligibility Date Funding Source Not [facility] Eligible 11/27/24 Private Coding Level of Care Code Est Pt Level 4 (82640) Diagnoses Hyperlipidemia LDL goal <100 E78.5 DM type 2 (diabetes mellitus, type 2) E11.9 Essential hypertension I10 Assessment & Plan Assessment & Plan (1) Hyperlipidemia LDL goal <100: Code(s): E78.5 - Hyperlipidemia, unspecified Category: Medical Plan: Continue statin (2) DM type 2 (diabetes mellitus, type 2): Comment: Patient could not afford Farxiga Code(s): E11.9 - Type 2 diabetes mellitus without complications Category: Medical Plan: A1c is 6.3, continue ADA diet regular exercise metformin follow-up in 3 months (3) Essential hypertension: Code(s): I10 - Essential (primary) hypertension Category: Medical Plan: BP better controlled on higher dose of lisinopril, continue current medications low-sodium diet follow-up in 3 months Orders: Orders Lipid Panel 3 Months E78.5 - Hyperlipidemia, unspecified, M25.512 - Pain in left shoulder Hemoglobin A1c 3 Months E78.5 - Hyperlipidemia, unspecified, M25.512 - Pain in left shoulder Pneumococcal 20 Immunization Today Z23 - Encounter for immunization Comprehensive [place]. Panel Fast 3 Months E78.5 - Hyperlipidemia, unspecified, M25.512 - Pain in left shoulder Medications: New ciprofloxacin HCl 0.3% put 1-2 drps in affected eye(s) every 2hr up to 8 times/day x2days; then 4 times/day x5days ophthalmic (eye) 5 mL 0RF
[2024-11-27 09:17] VITALS: BP 120/74; PULSE 49; RESP 15; TEMP 36.6; O2SAT 97; BMI 28.9
== END 2024-11-27 09:47 | disposition home or self-care (01) ==
LOC: HO.HMCC 09:11
PROVIDERS: PCP Internal Medicine; Visit Provider Internal Medicine
DX: E78.5 Hyperlipidemia, unspecified (principal); E11.9 Type 2 diabetes mellitus without complications; I10 Essential (primary) hypertension; Z23 Encounter for immunization

== ENCOUNTER → 2024-11-27 09:11 | Outpatient (BNVA) | payer MEDICARE, SELFPAY | PROVIDERS: PCP Internal Medicine; Visit Provider Internal Medicine | DX: E78.5 Hyperlipidemia, unspecified (principal); I10 Essential (primary) hypertension; E11.9 Type 2 diabetes mellitus without complications; M25.512 Pain in left shoulder; Z23 Encounter for immunization; Z79.899 Other long term (current) drug therapy | CPT/HCPCS: 90471; 90677; 99212 ==